=== PATIENT | male | born 1985 | race Two or more races ===

== ENCOUNTER 2024-03-08 11:27 | Emergency (ER) | payer MEDICAID, SELFPAY ==
[2024-03-08 11:32] VITALS: BMI 33.8
--- NOTE | 2024-03-08 11:56 | XR_ITS ---
Examination: AP chest single view Technique: AP portable upright chest single view Exam date and time: March 08, 2024 1209 hrs. Indications: Onset chest pain today Findings: Minimal prominence left ventricle No pneumonia or pulmonary edema The osseous structures are intact Impression: No active disease
--- NOTE | 2024-03-08 11:57 | PD.EDMEDCL ---
ED Medical Clearance RME/HPI General Chief complaint: Medical Clearance Stated complaint: CLEARANCE Time Seen by Provider: 03/08/24 11:34 Arrival date/time: 03/08/24 11:27 RME / HPI RME / HPI Narrative: 38-year-old male patient with significant history of cocaine abuse, was brought in by law enforcement for chest pain. Apparently patient is having chest pain since 9 AM today after using cocaine and drinking alcohol. He was picked up by law enforcement at around 10 PM. Currently patient is complaining of substernal chest pain, described as dull ache severity mild. Denies any cough denies any other complaints medications taken prior to arrival. Related Information Previous Rx's ?Medication ?Instructions ?Recorded cyclobenzaprine 5 mg tablet 5 mg PO TID PRN muscle spasm #30 11/16/23 tabs naproxen 500 mg tablet 500 mg PO BID PRN pain #30 tabs 11/16/23 Allergies Allergy/AdvReac Type Severity Reaction Status Date / Time bee venom protein (honey bee) Allergy Intermediate Swelling Verified 05/01/20 12:34 of the Eye Review of Systems Review of Systems Narrative Review of Systems: Review of system reviewed and within normal limits except mentioned in HPI ED Exam Narrative Physical exam: VITAL SIGNS: Reviewed. GENERAL APPEARANCE: Alert and interactive, follows commands, no acute distress, HEAD AND FACE: Non-traumatic. ENT: PERRL, pink conjunctivitis, eyelid no trauma, Mucous membrane moist. NECK: Supple, nontender, no nuchal rigidity. CHEST: No tenderness, no crepitus, no paradoxical movement, no retractions. LUNGS: Clear, well ventilated, symmetric, no rales, no wheezing, no ronchi, no stridor, good breath sounds bilaterally. HEART: Regular rate, regular rhythm, no murmur, no gallops. ABDOMEN: Soft, positive bowel sounds, nondistended, no guarding, nontender, no rebound, no masses, RECTAL: Deferred. GENITAL: Deferred. NEUROLOGICAL: Gross motor function intact sensory function intact, Appropriate for age. MUSCULOSKELETAL: low back nontender, full range of motion. EXTREMITIES: Nontender, full range of motion. SKIN: Color pink, dry, no rash, no lacerations, no abrasions, no contusions. LYMPHATICS: Deferred. Course Quality Measures none Orders Category Date Time Status XR chest 1V Stat Exams 03/08/24 11:56 Taken B-Type Natriuretic Peptide Stat Lab 03/08/24 12:03 Completed CBC Stat Lab 03/08/24 12:03 Completed Comprehensive Metabolic Panel Stat Lab 03/08/24 12:03 Completed Partial Thromboplastin Time Stat Lab 03/08/24 12:03 Completed Troponin I Stat Lab 03/08/24 12:03 Completed Vital Signs Vital signs: Vital Signs Temperature 98.7 F 03/08/24 12:04 Pulse Rate 133 H 03/08/24 12:04 Respiratory Rate 17 03/08/24 12:04 Blood Pressure 160/113 H 03/08/24 12:04 Pulse Oximetry (%) 97 03/08/24 12:04 Oxygen Delivery Method Room Air 03/08/24 12:04 Medical Clearance MDM Narrative MDM Narrative:: 38-year-old male patient with significant history of cocaine abuse, was brought in by law enforcement for chest pain. Apparently patient is having chest pain since 9 AM today after using cocaine and drinking alcohol. He was picked up by law enforcement at around 10 PM. Currently patient is complaining of substernal chest pain, described as dull ache severity mild. Denies any cough denies any other complaints medications taken prior to arrival. Cardiac workup came back unremarkable. Troponin is normal. Except for EKG shows sinus tachycardia, ventricular rate of 133 bpm, no ST segment ovation depression noted. Prior to discharge patient's heart rate was noted to be 120 and patient is denying any complaints. Patient is medically cleared for incarceration. Patient data External records reviewed:: None Clinical information provided by:: patient Social determinants that could affect healthcare access:: substance use Patient has the following chronic illnesses:: Cocaine abuse How is presenting disease/condition affected by chronic disease/condition?: exacerbated by Evaluation data The following diagnostics were reviewed and interpreted by me:: lab results, radiology exam(s) and EKG tracing(s) Lab and/or radiology exams considered but not ordered:: None Interpretation Summary: EKG sinus tachycardia, ventricular rate of 133 bpm, no ST segment elevation or depression noted. Laboratory workup all came back unremarkable troponin is normal. I personally reviewed and interpreted the x-ray of this patient. There is no acute abnormalities found, no infiltrates no pneumothorax no hemothorax normal chest x-ray. Review of other structures was without significant abnormal findings also. I additionally reviewed the radiologist report and agree with the interpretation. Medications / Prescriptions Medications or Prescriptions considered but not ordered:: None Medication administrations:: None Consultations Consultation(s) initiated? (list below): No Diagnosis Medical Clearance Differential Diagnosis: other (Cocaine abuse, chest pain, tachycardia, medical clearance for incarceration) Most likely diagnosis given after review of the tests above:: Medical clearance for incarceration, cocaine abuse Admission Indicated Admission indicated?: not indicated Explain why admission is indicated or not indicated:: None Admission Request Was there a request for admission?: No Disposition Plan Disposition Plan: Discharge Discharge Attestation Discharge Attestation: Patient condition: Stable Discharge Plan Plan Patient Disposition: Group Home/Court/Law Disposition Comment: Stable Prescriptions/Referrals Prescriptions/Med Rec: No Action naproxen 500 mg tablet 500 mg PO BID PRN (Reason: pain) Qty: 30 0RF cyclobenzaprine 5 mg tablet 5 mg PO TID PRN (Reason: muscle spasm) Qty: 30 0RF Problem List Clinical Impression: Medical clearance for incarceration, Cocaine abuse, Chest pain Patient/Caregiver Discharge Instructions Discharge Activity: activity as tolerated Education Materials: ED Drug Abuse Additional Instructions: Thank you for the opportunity for serving you today. You are stable for discharged . You are advised to: Follow-up with your PCP in 1 to 2 days once you get out of retirement Return to ED for worsening of symptoms Increase oral fluids Please stop abusing cocaine Print Language: Citizen Of [place] Stand Alone Forms: Henny Award Info., Patient Portal Info Letter PA/EZIO Supervising Physician MAGDALENA/EZIO Supervising Physician: MD Evonne
[2024-03-08 12:04] VITALS: BP 160/113; PULSE 133; RESP 17; TEMP 37.1; O2SAT 97
[2024-03-08 12:16] LABS: Basophils % (Auto) 0 % (0-2.5); Eosinophils % (Auto) 0 % (0-10); Hematocrit 37.4 % (41.0-53.0); Hemoglobin 13.1 g/dL (13.5-16.0); Immature Granulocytes % (Auto) 1 % (0-0); Immature Granulocytes Auto 0.06 Thou/mm3 (0.00-0.00); Lymphocytes # (Auto) 1.7 Thou/mm3 (1.0-4.8); Lymphocytes % (Auto) 14 % (10-50); Mean Corpuscular Hemoglobin 28.6 pg (25.0-35.0); Mean Corpuscular Volume 82 fL (80-100); Monocytes # (Auto) 0.8 Thou/mm3 (0.0-0.8); Monocytes % (Auto) 7 % (0-12); Neutrophils # (Auto) 9.2 Thou/mm3 (1.8-7.7); Neutrophils % (Auto) 78 % (37-80); Nucleated Red Blood Cell % 0 /100 WBC (0); Platelet Count 244 Thou/mm3 (140-440); RDW Standard Deviation 38.7 fL (35.1-43.9); Red Blood Count 4.58 Miln/mm3 (4.50-5.90); White Blood Count 11.8 Thou/mm3 (3.8-10.6)
[2024-03-08 12:34] LABS: B-Type Natriuretic Peptide < 20 pg/mL (0-100); Partial Thromboplastin Time 23.1 Seconds (22.0-36.0)
[2024-03-08 12:35] LABS: Alanine Aminotransferase 21 U/L (10-49); Albumin, Serum 4.8 gm/dL (3.5-5.0); Albumin/Globulin Ratio 1.6 (1.2-2.2); Alkaline Phosphatase 77 U/L (46-116); Anion Gap 10 (7-16); Aspartate Amino Transferase 17 U/L (0-34); BUN/Creatinine Ratio 13 Ratio (12-20); Bilirubin,Total 0.4 mg/dL (0.3-1.2); Blood Urea Nitrogen 15 mg/dL (9-23); Calcium 9.7 mg/dL (8.3-10.6); Calcium (Corrected) 9.7 mg/dL (8.5-10.1); Carbon Dioxide 21.7 mMol/L (20.0-31.0); Chloride 105 mMol/L (98-107); Creatinine (Component) 1.2 mg/dL (0.6-1.3); Estimated Creatinine Clearance 79.8 mL/min (>60); Glucose 99 mg/dL (74-106); Osmolality,Calculated 274 (275-295); Potassium 3.4 mMol/L (3.4-5.1); Sodium 137 mMol/L (136-145); Total Protein 7.8 gm/dL (5.7-8.2); Troponin I < 0.020 ng/mL (0.0-0.045); eGFR > 60 See Note
[2024-03-08 13:36] VITALS: BP 151/85; PULSE 107; RESP 18; TEMP 37; O2SAT 96
== END 2024-03-08 13:39 ==
LOC: SERX 13:55
PROVIDERS: Nurse Practitioner Family; Emergency Provider Emergency Medicine
DX: Z02.89 Encounter for other administrative examinations (principal); R07.9 Chest pain, unspecified; F14.10 Cocaine abuse, uncomplicated
CPT/HCPCS: 36415; 71045; 80053; 83880; 84484; 85025; 85730; 99283

== ENCOUNTER 2024-03-25 03:58 | Emergency (ER) | payer MEDICAID, SELFPAY ==
[2024-03-25] VITALS (17 sets, daily range): BP systolic 107–140; BP diastolic 67–86; PULSE 69–146; RESP 12–36; TEMP 36.3–39.7; O2SAT 94–100; BMI 36.0
[2024-03-25] MEDS: LORazepam 2 MG/ML VIAL IM (04:10)
[2024-03-25] MEDS: HALOPERIDOL LACT INJ 5 MG/ML VIAL IM (04:10)
[2024-03-25] MEDS: DiphenhydrAMINE INJ 50 MG/ML VIAL IM (04:10)
--- NOTE | 2024-03-25 04:13 | EDNOTE_ITS ---
ED General RME/HPI General Chief complaint: General Adult/Misc Complain Stated complaint: COMBATIVE Time Seen by Provider: 03/25/24 04:01 Source: patient Arrival date/time: 03/25/24 03:58 Mode of arrival: ambulatory Limitations: no limitations RME / HPI RME / HPI narrative: DR ERNANDEZ MAIN ED EVALUATION: 38-year-old male with history of alcohol abuse, cocaine abuse, methamphetamine abuse who presents to the emergency department for being combative. Related Data Previous Rx's ?Medication ?Instructions ?Recorded cyclobenzaprine 5 mg tablet 5 mg PO TID PRN muscle spasm #30 11/16/23 tabs naproxen 500 mg tablet 500 mg PO BID PRN pain #30 tabs 11/16/23 Allergies Allergy/AdvReac Type Severity Reaction Status Date / Time bee venom protein (honey bee) Allergy Intermediate Swelling Verified 05/01/20 12:34 of the Eye Review of Systems Review of Systems Systems Reviewed: All systems reviewed, normal except as documented Past Medical History Past Medical History CARDIAC: Negative Congestive Heart Failure RESPIRATORY: Negative Chronic Obstructive Pulmonary Disease (COPD) GENITOURINARY: Negative Renal Disease ENDOCRINE: Negative Diabetes Mellitus Type 1 or Diabetes Mellitus Type 2 PSYCHO/SOCIAL: Positive Recreational Drug Use (Meth use) Social History SMOKING STATUS: Never smoker SUBSTANCE USE: crack/cocaine ED Exam Narrative Physical exam: GENERAL APPEARANCE: alert and oriented x 4, well-developed, well-nourished, no acute distress VITALS: All vitals were reviewed and the pulse ox is 96% on room air, which is normal according to my interpretation. HEENT: Normocephalic, atraumatic; pupils equal, round, reactive to light; EOMI; mucous membranes pink, moist; oropharynx clear NECK: Supple LUNGS: CTABL; no wheezes, no rales, no rhonchi HEART: Tachycardic ABDOMEN: non distended; normal BS; soft, no tenderness, no guarding, no rebound; no masses, no organomegaly, no hernia BACK: no CVA tenderness EXTREMITIES: atraumatic; no edema NEUROLOGIC: awake; alert and oriented x4; cranial nerves II-XII grossly intact; no focal sensory or motor deficits PSYCHIATRIC: appropriate mood and affect SKIN: warm, dry, normal color; no rashes General Limitations: Present no limitations Course Course Course Narrative: 0516 Sepsis alert initiated. Orders made at this time are congruent with ED Adult Sepsis Order List. Re-evaluation is to be completed. 0546 Sepsis reassessment performed consisting of lab review, vitals, physical exam including auscultation of heart, lungs, and visual evaluation of capillary refills, mucosal membranes and extremities. The cardiac sonographer revealed sinus tachycardia as interpreted by me. The cardiac sonographer was ordered secondary to monitor for dysrhythmia. Rate 111 bpm. Quality Measures Current suspected stage: sepsis Possible source: unknown Blood cultures ordered: yes Antibiotic ordered: No Pertinent labs: 03/25/24 03/25/24 05:00 08:31 Lactic Acid 5.7 H* mMol/L 1.4 mMol/L (0.4-2.0) (0.4-2.0) Procalcitonin 0.04 ng/ml (0.0-0.49) sepsis Orders Category Date Time Status CT Screening NOW Care 03/25/24 07:23 Completed Railways Assistant NOW Care 03/25/24 04:23 Completed EKG (ED ONLY) *Do not use* NOW Care 03/25/24 04:23 Completed Bruce [Urinary Catheter] QS Care 03/25/24 07:32 Completed In and Out Catheter X1 Care 03/25/24 06:[address] abdomen pelvis w con Stat Exams 03/25/24 07:23 Completed EKG (ED Only) Stat Exams 03/25/24 04:23 Ordered XR chest 1V portable Stat Exams 03/25/24 04:23 Completed B-Type Natriuretic Peptide Stat Lab 03/25/24 05:00 Completed Blood Culture (Lab) Stat Lab 03/25/24 04:55 Received CBC Stat Lab 03/25/24 05:00 Completed Comprehensive Metabolic Panel Stat Lab 03/25/24 05:00 Completed Creatine Kinase Stat Lab 03/25/24 05:00 Completed Drug Screen,Urine Stat Lab 03/25/24 06:20 Completed Lactate (Lactic Acid) Stat Lab 03/25/24 05:00 Completed Lactic Acid, 3 HR Stat Lab 03/25/24 08:31 Completed Lipase Stat Lab 03/25/24 05:00 Completed Magnesium Stat Lab 03/25/24 05:00 Completed Partial Thromboplastin Time Stat Lab 03/25/24 05:00 Completed Procalcitonin Stat Lab 03/25/24 05:00 Completed Prothrombin Time with INR Stat Lab 03/25/24 05:00 Completed Troponin I Stat Lab 03/25/24 05:00 Completed UA, C/S IF [Urinalysis, C/S if Indicated] Stat Lab 03/25/24 06:20 Completed Urinalysis Stat Lab 03/25/24 06:20 Completed Urine Culture Stat Lab 03/25/24 06:20 Received Acetaminophen Ivpb [Ofirmev Inj] Med 03/25/24 04:27 Discontinued 1,000 mg in 100 ml IV X1 DiphenhydrAMINE INJ [Benadryl Inj] Med 03/25/24 04:01 Discontinued 50 mg IM X1 ONE Haloperidol Lactate [Haldol Inj] Med 03/25/24 04:01 Discontinued 5 mg IM X1 ONE LORazepam [Ativan Inj] Med 03/25/24 04:01 Discontinued 2 mg IM X1 ONE LORazepam [Ativan Inj] Med 03/25/24 04:22 Discontinued 2 mg IVP X1 ONE Sodium Chloride 0.9% 1000 ml [Ns] 1,000 ml Med 03/25/24 04:24 Discontinued IV 999 mls/hr Sodium Chloride 0.9% 1000 ml [Ns] 1,000 ml Med 03/25/24 04:27 Discontinued IV 999 mls/hr Sodium Chloride 0.9% 1000 ml [Ns] 1,000 ml Med 03/25/24 05:38 Discontinued IV 999 mls/hr cefTRIAXone/D5w 1gm IV premix [Rocephin/D5w 1gm IV Med 03/25/24 06:09 Discontinued premix] 50 ml IV X1 Vital Signs Vital signs: Vital Signs Temperature 103.4 F H 03/25/24 04:15 Pulse Rate 146 H 03/25/24 04:15 Respiratory Rate 36 H 03/25/24 04:15 Blood Pressure 130/67 03/25/24 04:15 Pulse Oximetry (%) 99 03/25/24 04:15 Oxygen Delivery Method Room Air 03/25/24 04:15 [facility] Patient data External records reviewed:: [facility] previous records Clinical information provided by:: patient Social determinants that could affect healthcare access:: other (specify) (mental health, alcohol use, cocaine and methamphetamine use) Patient has the following chronic illnesses:: Polysubstance abuse How is presenting disease/condition affected by chronic disease/condition?: e xacerbated by Evaluation data The following diagnostics were reviewed and interpreted by me:: lab results and radiology exam(s) Lab and/or radiology exams considered but not ordered:: n/a Interpretation Summary: 0520 Pending blood works collection Medications Medications considered but not ordered:: n/a Medication administrations:: Medication Administration History Discontinued Medications Diphenhydramine HCl (Diphenhydramine Inj 50 Mg/Ml Vial) 50 mg IM X1 ONE Stop: 03/25/24 04:02 Last Admin: 03/25/24 04:10 Dose: 50 mg Documented By: TC Haloperidol Lactate (Haloperidol Lact Inj 5 Mg/Ml Vial) 5 mg IM X1 ONE Stop: 03/25/24 04:02 Last Admin: 03/25/24 04:10 Dose: 5 mg Documented By: TC Sodium Chloride (Ns) 1,000 mls @ 999 mls/hr IV .Q1H1M ONE Stop: 03/25/24 05:24 Last Infusion: 03/25/24 05:32 Dose: Infused Documented By: Admin: 03/25/24 04:43 Dose: 999 mls/hr Documented By: TC Acetaminophen (Ofirmev Inj) 1,000 mg in 100 mls @ 250 mls/hr IV X1 ONE Stop: 03/25/24 04:50 Last Infusion: 03/25/24 04:58 Dose: Infused Documented By: Admin: 03/25/24 04:41 Dose: 250 mls/hr Documented By: TC Sodium Chloride (Ns) 1,000 mls @ 999 mls/hr IV .Q1H1M ONE Stop: 03/25/24 05:27 Last Infusion: 03/25/24 05:33 Dose: Infused Documented By: Admin: 03/25/24 04:40 Dose: 999 mls/hr Documented By: TC Sodium Chloride (Ns) 1,000 mls @ 999 mls/hr IV .Q1H1M ONE Stop: 03/25/24 06:38 Last Infusion: 03/25/24 06:41 Dose: Infused Documented By: Admin: 03/25/24 05:41 Dose: 999 mls/hr Documented By: TC Ceftriaxone Sodium/Dextrose (Rocephin/D5w 1gm Iv Premix) 50 mls @ 100 mls/hr IV X1 ONE Stop: 03/25/24 06:38 Last Infusion: 03/25/24 07:15 Dose: Infused Documented By: Admin: 03/25/24 06:45 Dose: 100 mls/hr Documented By: TC Lorazepam (Lorazepam 2 Mg/Ml Vial) 2 mg IM X1 ONE Stop: 03/25/24 04:02 Last Admin: 03/25/24 04:10 Dose: 2 mg Documented By: TC Lorazepam (Lorazepam 2 Mg/Ml Vial) 2 mg IVP X1 ONE Stop: 03/25/24 04:23 Last Admin: 03/25/24 04:39 Dose: 2 mg Documented By: TC as above Consultations Consultation(s) initiated? (list below): No Admission Indicated Admission indicated?: not indicated Explain why admission is indicated or not indicated:: sign out Admission Request Was there a request for admission?: No Disposition Plan Disposition Plan: other (specify) (sign out) Medical Decision Making MDM Narrative MDM Narrative: 0600: Care signed out to oncoming day shift provider Past medical, surgical, social and family history reviewed. Vitals and home medications reviewed. Results and treatment plan discussed. They will assume the care of the patient at this time and will follow the patient, pending work-up and final disposition. Scribe Attestation: I, Wayne Bianchi, am scribing for and in the presence of Dr. Ernandez. Provider Notation: Although this document has been carefully reviewed, there may still be some phonetic and other typographical errors. These errors are purely grammatical due to imperfections in the software program and should not be construed in any way to compromise the substance of the patient's medical care during this visit. Medical Records Medical records reviewed: Yes I reviewed the patient's medical records. Lab Data 03/25/24 05:00 03/25/24 05:00 Labs: Lab Results 03/25/24 03/25/24 03/25/24 Range/Units 05:00 06:20 08:31 WBC 13.5 H (3.8-10.6) Thou/mm3 RBC 4.20 L (4.50-5.90) Miln/mm3 Hgb 12.0 L (13.5-16.0) g/dL Hct 35.0 L (41.0-53.0) % MCV 83 (80-100) fL MCH 28.6 (25.0-35.0) pg MCHC 34.3 (31.0-37.0) g/dl RDW Std Deviation 38.5 (35.1-43.9) fL Plt Count 207 D (140-440) Thou/mm3 Neut % (Auto) 86 H (37-80) % Lymph % (Auto) 8 L (10-50) % Dawson % (Auto) 6 (0-12) % Eos % (Auto) 0 (0-10) % Baso % (Auto) 0 (0-2.5) % Neut # (Auto) 11.5 H (1.8-7.7) Thou/mm3 Lymph # (Auto) 1.0 (1.0-4.8) Thou/mm3 Dawson # (Auto) 0.8 (0.0-0.8) Thou/mm3 Eos # (Auto) 0.0 (0.0-0.5) Thou/mm3 Baso # (Auto) 0.0 (0.0-0.2) Thou/mm3 Immature Gran # (Auto) 0.10 H (0.00-0.00) Thou/mm3 Absolute Nucleated RBC 0.00 (0.00-0.00) Thou/mm3 Immature Gran % 1 H (0-0) % Nucleated RBC % 0 (0) /100 WBC PT 11.4 (9.0-12.2) Seconds INR 1.0 (0.9-1.3) APTT 20.0 L (22.0-36.0) Seconds Sodium 138 (136-145) mMol/L Potassium 3.2 L (3.4-5.1) mMol/L Chloride 108 H (98-107) mMol/L Carbon Dioxide 18.2 L (20.0-31.0) mMol/L Anion Gap 12 (7-16) BUN 15 (9-23) mg/dL Creatinine 1.4 H (0.6-1.3) mg/dL Estim Creat Clear Calc 84.0 (>60) mL/min eGFR > 60 (60 - ) See Note BUN/Creatinine Ratio 11 L (12-20) Ratio Glucose 147 H (74-106) mg/dL Calculated Osmolality 279 (275-295) Lactic Acid 5.7 H* 1.4 (0.4-2.0) mMol/L Calcium 8.7 (8.3-10.6) mg/dL Corrected Calcium 8.7 (8.5-10.1) mg/dL Magnesium 2.1 (1.6-2.6) mg/dL Total Bilirubin 0.3 (0.3-1.2) mg/dL AST 19 (0-34) U/L ALT 23 (10-49) U/L Alkaline Phosphatase 73 (46-116) U/L Total Creatine Kinase 373 H (34-171) U/L Troponin I < 0.020 (0.0-0.045) ng/mL B-Natriuretic Peptide < 20 (0-100) pg/mL Total Protein 6.9 (5.7-8.2) gm/dL Albumin 4.4 (3.5-5.0) gm/dL Globulin 2.5 (2.3-3.5) gm/dL Albumin/Globulin Ratio 1.8 (1.2-2.2) Lipase 34 (12-53) U/L Procalcitonin 0.04 (0.0-0.49) ng/ml Ur Collection Type Catheter Urine Color Colorless A (Lt Yel-Yel) Urine Clarity Clear (Clear/Hazy) Urine pH 6.0 (5.0-7.0) Ur Specific [place] 1.008 (1.001-1.035) Urine Protein Trace (Neg - Trace) Urine Glucose (UA) Negative (Negative) Urine Ketones Negative (Negative) Urine Blood Negative (Negative) Urine Nitrite Negative (Negative) Urine Bilirubin Negative (Negative) Urine Urobilinogen (Auto) Negative (0.0-1.0) mg/dL Ur Leukocyte Esterase Negative (Negative) Urine RBC 0 (0-3) /hpf Urine WBC 0 (0-5) /hpf Ur Squamous Epith Cells 0 (0-5) /hpf Urine Bacteria None (None) Ur Culture Indicated? Not Indicated Urine Opiates Screen Negative (Negative) Urine Fentanyl Screen Negative (Negative) Ur Barbiturates Screen Negative (Negative) U Amphetamin/Meth Scrn Negative (Negative) U Benzodiazepines Scrn Negative (Negative) U Cocaine Metab Screen Positive A (Negative) U Marijuana (THC) Screen Negative (Negative) Discharge Plan Plan Patient Disposition: HOME (Self Care) Disposition Comment: Stable for DC home Prescriptions/Referrals Prescriptions/Med Rec: No Action naproxen 500 mg tablet 500 mg PO BID PRN (Reason: pain) Qty: 30 0RF cyclobenzaprine 5 mg tablet 5 mg PO TID PRN (Reason: muscle spasm) Qty: 30 0RF Referrals: No Primary/Family,Physician [Primary Care Provider] - In 1 week Problem List Clinical Impression: Cocaine abuse Patient/Caregiver Discharge Instructions Education Materials: ED Cocaine And Crack Abuse Additional Instructions: Stop using cocaine. That stuff is very dangerous and can kill you. Follow-up with your medical doctor in 24 to 72 hours for recheck and further care. Return to the nearest ER if condition worsens or if new symptoms develop. Print Language: [place] Stand Alone Forms: Henny Award Info., Patient Portal Info Letter
--- NOTE | 2024-03-25 04:23 | XR_ITS ---
Examination: AP chest single view Technique: AP portable semiupright chest single view Exam date and time: March 25, 2024 1739 hrs. Comparison March 08, 2024 Indications: Chest pain today. Findings: Normal heart size Lungs are clear. The osseous structures are intact Reduced inspiration Impression: Poor inspiratory effort chest
[2024-03-25] MEDS: LORazepam 2 MG/ML VIAL IVP (04:39)
[2024-03-25] MEDS: SODIUM CHLORIDE 0.9% 1000 ML 1,000 ML 999 ML IV ×3 (04:40→05:41)
[2024-03-25] MEDS: ACETAMINOPHEN IVPB 1,000 MG/100 ML VIAL 250 MG IV (04:41)
[2024-03-25 05:32] LABS: Basophils % (Auto) 0 % (0-2.5); Eosinophils % (Auto) 0 % (0-10); Immature Granulocytes % (Auto) 1 % (0-0); Lymphocytes % (Auto) 8 % (10-50); Mean Corpuscular HGB Conc 34.3 g/dl (31.0-37.0); Mean Corpuscular Hemoglobin 28.6 pg (25.0-35.0); Mean Corpuscular Volume 83 fL (80-100); Monocytes # (Auto) 0.8 Thou/mm3 (0.0-0.8); Monocytes % (Auto) 6 % (0-12); Neutrophils # (Auto) 11.5 Thou/mm3 (1.8-7.7); Neutrophils % (Auto) 86 % (37-80); Nucleated Red Blood Cell % 0 /100 WBC (0); Platelet Count 207 Thou/mm3 (140-440); RDW Standard Deviation 38.5 fL (35.1-43.9); White Blood Count 13.5 Thou/mm3 (3.8-10.6)
[2024-03-25 05:38] LABS: Lactate (Lactic Acid) 5.7 mMol/L (0.4-2.0)
[2024-03-25 05:52] LABS: B-Type Natriuretic Peptide < 20 pg/mL (0-100)
[2024-03-25 06:00] LABS: Alanine Aminotransferase 23 U/L (10-49); Albumin, Serum 4.4 gm/dL (3.5-5.0); Albumin/Globulin Ratio 1.8 (1.2-2.2); Alkaline Phosphatase 73 U/L (46-116); Anion Gap 12 (7-16); Aspartate Amino Transferase 19 U/L (0-34); BUN/Creatinine Ratio 11 Ratio (12-20); Bilirubin,Total 0.3 mg/dL (0.3-1.2); Blood Urea Nitrogen 15 mg/dL (9-23); Calcium 8.7 mg/dL (8.3-10.6); Calcium (Corrected) 8.7 mg/dL (8.5-10.1); Carbon Dioxide 18.2 mMol/L (20.0-31.0); Chloride 108 mMol/L (98-107); Creatine Kinase 373 U/L (34-171); Creatinine (Component) 1.4 mg/dL (0.6-1.3); Globulin 2.5 gm/dL (2.3-3.5); Glucose 147 mg/dL (74-106); Lipase 34 U/L (12-53); Magnesium 2.1 mg/dL (1.6-2.6); Osmolality,Calculated 279 (275-295); Potassium 3.2 mMol/L (3.4-5.1); Procalcitonin 0.04 ng/ml (0.0-0.49); Sodium 138 mMol/L (136-145); Total Protein 6.9 gm/dL (5.7-8.2); Troponin I < 0.020 ng/mL (0.0-0.045); eGFR > 60 See Note
[2024-03-25 06:24] LABS: Collection Type, Urine Catheter; RBC,Urine 0 /hpf (0-3); Squamous Epithelial Cell,Urine 0 /hpf (0-5); WBC,Urine 0 /hpf (0-5)
[2024-03-25] MEDS: cefTRIAXone/D5w 1gm IV premix 50 ML IV (06:45)
[2024-03-25 06:56] LABS: Bilirubin,Urine Negative (Negative); Blood,Urine Negative (Negative); Clarity,Urine Clear (Clear/Hazy); Color,Urine Colorless (Lt Yel-Yel); Culture Indicated,Urine Not Indicated; Glucose, Urine Negative (Negative); Ketones,Urine Negative (Negative); Leukocyte Esterase,Urine Negative (Negative); Nitrite,Urine Negative (Negative); Protein,Urine Trace (Neg - Trace); Specific Gravity,Urine 1.008 (1.001-1.035); Urobilinogen,Urine Negative mg/dL (0.0-1.0)
[2024-03-25 06:57] LABS: Prothrombin Time 11.4 Seconds (9.0-12.2)
--- NOTE | 2024-03-25 07:23 | XR_ITS ---
Examination: CT abdomen with intravenous contrast CT pelvis with intravenous contrast 2-D coronal reconstructions 2-D sagittal reconstructions Date and time of exam:March 25, 2024 1229 hours INDICATIONS: Distended abdomen with fever today. CTDI: vol (mGy) 8.35 DLP: (mGycm) 550 Technique: Multiple axial sections of the abdomen and pelvis have been obtained. 64 slice high-resolution scanner used. 3 mm axial sections have been obtained, post intravenous injection 60 cc [id number] 2-D sagittal, coronal reconstructions obtained. Low dose protocols were performed. One or more of the following dose reduction techniques were used; automated exposure control, adjustment of the mA and/or KV according to patient size, use of iterative reconstruction technique. Findings: No focal liver or splenic lesions No gallstones No pancreatic or adrenal mass No renal or ureteral calculi, no hydronephrosis Aorta normal size Normal appendix No abdominal or pelvic abscess Colonic diverticulosis Urinary bladder contracted around a Bruce catheter Small fat-containing left inguinal hernia IMPRESSION: No renal or ureteral calculi, no hydronephrosis No opaque foreign bodies noted in the gastrointestinal tract Normal appendix Negative for ascites
[2024-03-25 07:52] LABS: Amphetamine/Methamp Scrn,U Negative (Negative); Barbiturate Screen,Urine Negative (Negative); Benzodiazepines Screen,Urine Negative (Negative); Benzoylecgonine Screen, Ur Positive (Negative); Fentanyl Screen,Urine Negative (Negative); Opiate Screen,Urine Negative (Negative); THC Screen,Urine Negative (Negative)
--- NOTE | 2024-03-25 08:16 | PC.NURSE ---
Pt resting w/eyes closed, denies any pain or discomfort at this time. Bruce placed output documented. Call jin in reach, VSS on tele
--- NOTE | 2024-03-25 08:21 | EDNOTE_ITS ---
Emergency Room Addendum <Bernadette Tran - Last Filed: 03/25/24 15:06> Addendum Narrative: 0600: Care assumed from Dr. Avery, the previous shift emergency physician. Past medical, surgical, social and family history reviewed. Vitals and home medications reviewed. I will assume the care of the patient at this time, pending reassessment and final disposition. Please refer to the emergency department record for history and examination from initial visit.? Nursing notes reviewed by me. Vital signs reviewed by me. [facility] records reviewed by me. A sepsis alert was called prior to my shift at 05:16 am. Patient was given 3L of NS. By my predecessor Dr. AVERY. I put the patient on some antibiotic because of possibility of pneumonia. CBC white count of 14,000. Bicarb of 18. Creatinine is 1.6. Lipase negative. CMP is otherwise unremarkable. Lactic acid at 5.7 after the IV fluid it came down to 1.4. CK mildly elevated but no sign of rhabdo. Troponin is negative. BNP is negative. Procalcitonin negative. U tox is positive for cocaine not methamphetamine. UA is negative. One-view portable chest x-ray interpreted by me: Cannot rule out infiltrate behind the heart shadow. Mediastinum is normal. Normal bones. No pneumothorax. No CHF. Twelve-lead EKG that was done at 4:53 AM and interpreted by me: Sinus rhythm. Heart rate 121. Normal axis. No ST elevation. No ST depression. No PVC. No STEMI. Regular rate and rhythm. CT abdomen and pelvic reviewed by and interpreted by me: No stranding. No obstruction. No air-fluid level. No free air. And no sign of foreign body in the intestinal tract or stomach. Except for food. 3 PM, the patient is alert awake oriented x 4 GCS of 15. Vital signs are stable. Temperature 98.5 by me. Repeat abdominal exam is completely benign. He does not cough. Therefore possibility of pneumonia is unlikely. Besides Dr Dillard, radiologist read the chest x-ray being negative acute. After multiple questioning, the patient insist that he just swallows some drugs by mouth. He did not swallow any bags of drugs. I specifically classify as a plastic bag he said no. Diagnosis: Cocaine abuse Condition: Stable and improved DC instruction: Stop using cocaine. It is extremely dangerous and can kill you. Follow-up with your medical doctor in 72 hours for recheck and further care. Return to emergency department if any problem. RADIOLOGY Ordering Physician: Talon Rojas MD Date of Service: 03/25/24 Procedure(s): CT abdomen pelvis w con Accession Number(s): [id number] cc: Breezy Dillard MD; NO PRIMARY/FAMILY,PHYSICIAN; Talon oRjas MD~ Examination: CT abdomen with intravenous contrast CT pelvis with intravenous contrast 2-D coronal reconstructions 2-D sagittal reconstructions Date and time of exam:March 25, 2024 1229 hours INDICATIONS: Distended abdomen with fever today. CTDI: vol (mGy) 8.35 DLP: (mGycm) 550 Technique: Multiple axial sections of the abdomen and pelvis have been obtained. 64 slice high-resolution scanner used. 3 mm axial sections have been obtained, post intravenous injection 60 cc [id number] 2-D sagittal, coronal reconstructions obtained. Low dose protocols were performed. One or more of the following dose reduction techniques were used; automated exposure control, adjustment of the mA and/or KV according to patient size, use of iterative reconstruction technique. Findings: No focal liver or splenic lesions No gallstones No pancreatic or adrenal mass No renal or ureteral calculi, no hydronephrosis Aorta normal size Normal appendix No abdominal or pelvic abscess Colonic diverticulosis Urinary bladder contracted around a Bruce catheter Small fat-containing left inguinal hernia IMPRESSION: No renal or ureteral calculi, no hydronephrosis No opaque foreign bodies noted in the gastrointestinal tract Normal appendix Negative for ascites Dictated By: Breezy Dillard MD Signed By: <Electronically signed by Breezy Dillard MD in OV> 03/25/24 1335 Ordering Physician: Celeste Avery MD Date of Service: 03/25/24 Procedure(s): XR chest 1V portable Accession Number(s): [id number] cc: Breezy Dillard MD; NO PRIMARY/FAMILY,PHYSICIAN; Celeste Avery MD~ Examination: AP chest single view Technique: AP portable semiupright chest single view Exam date and time: March 25, 2024 1739 hrs. Comparison March 08, 2024 Indications: Chest pain today. Findings: Normal heart size Lungs are clear. The osseous structures are intact Reduced inspiration Impression: Poor inspiratory effort chest Dictated By: Breezy Dillard MD Signed By: <Electronically signed by Breezy Dillard MD in OV> 03/25/24 0734 <Talon Rojas MD - Last Filed: 03/25/24 15:08> Addendum Narrative: 0600: Care assumed from Dr. Avery, the previous shift emergency physician. Past medical, surgical, social and family history reviewed. Vitals and home medications reviewed. I will assume the care of the patient at this time, pending reassessment and final disposition. Please refer to the emergency department record for history and examination from initial visit.? Nursing notes reviewed by me. Vital signs reviewed by me. [facility] records reviewed by me. A sepsis alert was called prior to my shift at 05:16 am. Patient was given 3L of NS. By my predecessor Dr. AVERY. I put the patient on some antibiotic because of possibility of pneumonia. My predecessor Dr. AVERY does not think the patient needs to be admitted. She think that the patient needs time to metabolize the drugs that he had swallowed. She does not think that the patient has sepsis. CBC white count of 14,000. Bicarb of 18. Creatinine is 1.6. Lipase negative. CMP is otherwise unremarkable. Lactic acid at 5.7 after the IV fluid it came down to 1.4. CK mildly elevated but no sign of rhabdo. Troponin is negative. BNP is negative. Procalcitonin negative. U tox is positive for cocaine not methamphetamine. UA is negative. One-view portable chest x-ray interpreted by me: Cannot rule out infiltrate behind the heart shadow. Mediastinum is normal. Normal bones. No pneumothorax. No CHF. Twelve-lead EKG that was done at 4:53 AM and interpreted by me: Sinus rhythm. Heart rate 121. Normal axis. No ST elevation. No ST depression. No PVC. No STEMI. Regular rate and rhythm. CT abdomen and pelvic reviewed by and interpreted by me: No stranding. No obstruction. No air-fluid level. No free air. And no sign of foreign body in the intestinal tract or stomach. Except for food. 3 PM, the patient is alert awake oriented x 4 GCS of 15. Vital signs are stable. Temperature 98.5 by me. Repeat abdominal exam is completely benign. He does not cough. Therefore possibility of pneumonia is unlikely. Besides Dr Dillard, radiologist read the chest x-ray being negative acute. After multiple questioning, the patient insist that he just swallows some drugs by mouth. He did not swallow any bags of drugs. I specifically classify as a plastic bag he said no. Diagnosis: Cocaine abuse Condition: Stable and improved DC instruction: Stop using cocaine. It is extremely dangerous and can kill you. Follow-up with your medical doctor in 72 hours for recheck and further care. Return to emergency department if any problem. RADIOLOGY Ordering Physician: Talon Rojas MD Date of Service: 03/25/24 Procedure(s): CT abdomen pelvis w con Accession Number(s): [id number] cc: Breezy Dillard MD; NO PRIMARY/FAMILY,PHYSICIAN; Talon Rojas MD~ Examination: CT abdomen with intravenous contrast CT pelvis with intravenous contrast 2-D coronal reconstructions 2-D sagittal reconstructions Date and time of exam:March 25, 2024 1229 hours INDICATIONS: Distended abdomen with fever today. CTDI: vol (mGy) 8.35 DLP: (mGycm) 550 Technique: Multiple axial sections of the abdomen and pelvis have been obtained. 64 slice high-resolution scanner used. 3 mm axial sections have been obtained, post intravenous injection 60 cc [id number] 2-D sagittal, coronal reconstructions obtained. Low dose protocols were performed. One or more of the following dose reduction techniques were used; automated exposure control, adjustment of the mA and/or KV according to patient size, use of iterative reconstruction technique. Findings: No focal liver or splenic lesions No gallstones No pancreatic or adrenal mass No renal or ureteral calculi, no hydronephrosis Aorta normal size Normal appendix No abdominal or pelvic abscess Colonic diverticulosis Urinary bladder contracted around a Bruce catheter Small fat-containing left inguinal hernia IMPRESSION: No renal or ureteral calculi, no hydronephrosis No opaque foreign bodies noted in the gastrointestinal tract Normal appendix Negative for ascites Dictated By: Breezy Dillard MD Signed By: <Electronically signed by Breezy Dillard MD in OV> 03/25/24 1335 Ordering Physician: Celeste Avery MD Date of Service: 03/25/24 Procedure(s): XR chest 1V portable Accession Number(s): [id number] cc: Breezy Dillard MD; NO PRIMARY/FAMILY,PHYSICIAN; Celeste Avery MD~ Examination: AP chest single view Technique: AP portable semiupright chest single view Exam date and time: March 25, 2024 1739 hrs. Comparison March 08, 2024 Indications: Chest pain today. Findings: Normal heart size Lungs are clear. The osseous structures are intact Reduced inspiration Impression: Poor inspiratory effort chest Dictated By: Breezy Dillard MD Signed By: <Electronically signed by Breezy Dillard MD in OV> 03/25/24 0734
[2024-03-25 08:22] LABS: Reflex Lactate? Y
[2024-03-25 08:38] LABS: Lactic Acid, 3 HR 1.4 mMol/L (0.4-2.0)
== END 2024-03-25 15:43 | disposition home or self-care (01) ==
PROVIDERS: Emergency Medicine; Emergency Provider Emergency Medicine
DX: F14.10 Cocaine abuse, uncomplicated (principal); R14.0 Abdominal distension (gaseous); R50.9 Fever, unspecified; R07.9 Chest pain, unspecified; R00.0 Tachycardia, unspecified
CPT/HCPCS: 51702; 36415; 36600; 71045; 74177; 80053; 80307; 81001; 82550; 82803; 83605; 83690; 83735; 83880; 84145; 84484; 85025; 85610; 85730; 87040; 87086; 93005; 96361; 96365; 96367; 96372; 96375; 99285; A4649; J0131; J0696; J1200; J1630; J2060; J7030; Q9967

== ENCOUNTER 2024-10-16 23:18 | Emergency (ER) | payer MEDICAID, SELFPAY ==
[2024-10-16 23:23] VITALS: BMI 31.0
--- NOTE | 2024-10-16 23:23 | EDNOTE_ITS ---
Altered Mental Status RME/HPI General Chief Complaint: Medical Clearance Stated Complaint: MEDICAL CLEARANCE Time Seen by Provider: 10/16/24 23:20 Arrival date/time: 10/16/24 23:18 RME / HPI RME / HPI narrative: DR. RAMIREZ MAIN ED EVALUATION: 39 y/o male with Hx of recreational drug abuse BIBA and PPD due to being found by EMS with AMS, hallucinations, and paranoia. Patient was combative on scene requiring physical and chemical restraints, then was transferred to ED for evaluation. No sign of head trauma or seizure. History was abbreviated, primarily obtained from EMS. No other concerns or complaints expressed at this time. Related Data Previous Rx's ?Medication ?Instructions ?Recorded cyclobenzaprine 5 mg tablet 5 mg PO TID PRN muscle spa sm #30 11/16/23 tabs naproxen 500 mg tablet 500 mg PO BID PRN pain #30 t abs 11/16/23 Allergies Allergy/AdvReac Type Severity Reaction Status Date / Time bee venom protein (honey bee) Allergy Intermediate Swelling Verified 05/01/20 12:34 of the Eye Review of Systems Review of Systems Systems Reviewed: All systems reviewed, normal except as documented Past Medical History Past Medical History PSYCHO/SOCIAL: Positive Recreational Drug Use Social History SUBSTANCE USE: crack/cocaine, opiates and methamphetamine SUBSTANCE LAST USED: just [employer] ED Exam Narrative Physical exam: GEN. APPEARANCE: The patient is disoriented, does not look ill/toxic. Patient has good eye contact. Patient appears agitated. VITALS: All vitals were reviewed and the pulse ox is 97% on room air which is normal according to my interpretation. HEENT: Normocephalic, atraumatic. Pupils are equal and reactive. Oral mucosa is moist. Patent Nares NECK: Supple, nontender, no thyromegaly, no meningismus, no JVD, no step offs CHEST: Symmetrical, atraumatic, and with equal expansion , Nontender on palpation no deformity and no crepitus. CARDIOVASCULAR: Hypertensive and tachycardic, no murmur or gallop rub or extra beats. LUNGS: Clear to auscultation bilaterally with symmetrical chest rise. No laboring tachypnea or wheezing. No intercostal subcostal retraction. No rales and no rhonchi. ABDOMEN: Soft, flat, nontender to palpation, no guarding or rebound tenderness. There are no abnormal masses palpated. Active and normal bowel sounds. EXTREMITIES: Nontender. No edema. No cyanosis. Patient is able to move all 4 extremities well, with full ROM and good CSM. SKIN: Warm and diaphoretic, no jaundice or rashes noted. MUSCULOSKELETAL: No lubar or midline bony tenderness. There is no CVA tenderness. No paraspinal muscle spasm or tenderness. NEURO: Moderate to severe phsyomotor agitation. Cranial nerves II through XII grossly intact. There is no focal neurologic deficits noted. GCS is 15, PNS and PARTS IDENTIFICATION TECHNICIAN appear grossly intact. Disoriented agitated no focal deficits. PSYCHIATRIC: Patient is disoriented and agitated, cooperative, no SI or HI or hallucinations. Physically unable to fully assess at this time. Course Quality Measures none Orders Category Date Time Status Bedside Blood Glucose NOW Care 10/16/24 23:25 Completed Mold Release Worker NOW Care 10/16/24 23:25 Completed Continuous Pulse Oximetry NOW Care 10/16/24 23:25 Completed EKG (ED ONLY) *Do not use* NOW Care 10/16/24 23:25 Completed Insert IV NOW Care 10/16/24 23:25 Completed NPO NOW Care 10/16/24 23:[address] cervical spine wo con Stat Exams 10/16/24 23:25 Taken EKG (ED Only) Stat Exams 10/16/24 23:25 Ordered Acetaminophen Stat Lab 10/16/24 23:25 Completed Alcohol, Blood Medical Stat Lab 10/16/24 23:25 Completed BMP [Basic Metabolic Panel] Stat Lab 10/17/24 02:58 Completed CBC Stat Lab 10/16/24 23:25 Completed CBC Stat Lab 10/17/24 02:58 Completed Comprehensive Metabolic Panel Stat Lab 10/16/24 23:25 Completed Creatine Kinase Stat Lab 10/17/24 02:58 Completed Drug Screen,Urine Stat Lab 10/17/24 01:19 Completed Magnesium Stat Lab 10/16/24 23:25 Completed Path Review Blood Smear Stat Lab 10/17/24 02:58 Completed Salicylate Stat Lab 10/16/24 23:25 Completed Urinalysis Stat Lab 10/17/24 01:19 Completed Diazepam Inj [Valium Inj] Med 10/16/24 23:30 Discontinued 10 mg .ROUTE .STK-MED ONE Diazepam Inj [Valium Inj] Med 10/16/24 23:22 Discontinued 10 mg IM X1 ONE Haloperidol Lactate [Haldol Inj] Med 10/16/24 23:30 Discontinued 10 mg .ROUTE .STK-MED ONE Haloperidol Lactate [Haldol Inj] Med 10/16/24 23:22 Discontinued 10 mg IM X1 ONE Sodium Chloride 0.9% 1000 ml [Ns] 1,000 ml Med 10/16/24 23:25 Discontinued IV 1,000 mls/hr Sodium Chloride 0.9% 1000 ml [Ns] 1,000 ml Med 10/17/24 00:46 Discontinued IV 999 mls/hr Sodium Chloride 0.9% 1000 ml [Ns] 1,000 ml Med 10/17/24 02:40 Discontinued IV 999 mls/hr Vital Signs Vital signs: Vital Signs Temperature 97.7 F 10/16/24 23: Pulse Rate 168 H 10/16/24 23:25 Respiratory Rate 22 H 10/16/24 23:25 Blood Pressure 174/81 H 10/16/24 23:25 Pulse Oximetry (%) 100 10/16/24 23:25 Oxygen Delivery Method Room Air 10/16/24 23:25 Notably severely tachycardic with rate of 168 hypertensive at systolic of 174 and 100% O2 saturation on room air. Altered Mental Status MDM Narrative MDM Narrative:: Scribe Attestation: ILynda, am scribing for and in the presence of Dr. Ramirez. Provider Notation: Although this document has been carefully reviewed, there may still be some phonetic and other typographical errors.? These errors are purely grammatical due to imperfections in the software program and should not be construed in any way to? compromise the substance of the patient's medical care during this visit. 39 y/o male with Hx of recreational drug abuse BIBA and PPD due to being found by EMS with AMS, hallucinations, and paranoia. Patient was combative on scene requiring physical and chemical restraints, then was transferred to ED for evaluation. No sign of head trauma or seizure. Please see PE findings. Patient acuely psychoti with markedly increased BP and HR. Underwent rapid tranquilization wth resolution of psychomotor hyperactivity. patient aggressively hydrated with normal saline to correct volume deficit. Laboratory markers were pertinent for markedly elevated WBC of 25k likely due to demarhination. Hemoglobin concentrated at 13 notable for Creatinine 2.2 and CO2 of 15.1. UA demonstrates proteinuria. Toxicology screen positive for cocaine and benzodiazepines. Continued hydration and F/U serum chemistries pending. Patient lucid and released on his own accord by [facility]. Patient will likely be discharged home. Patient counseled regarding illicit drug abuse and need to F/U with PMD to repeat serum chemistries. F/U serum chemistry markedly improved however total CK of 13K putting patient at serious risk or rhabdomyolosis and kidney failure. Despite risks of developing kidney failure, patient opted to leave [facility] due to new employment. Informed he may return and to f/u with primary care for repeat serums in 3-5 days. Final diagnoses include: drug-induced psychosis, substance abuse, and acute renal i nsufficiency. Patient data External records reviewed:: [facility] previous records (Reviewed prior ED records from 03/25/24. Patient was seen for Cocaine abuse.) and EMS form Clinical information provided by:: EMS Social determinants that could affect healthcare access:: substance use (Methamphetamine) Patient has the following chronic illnesses:: Recreational drug use How is presenting disease/condition affected by chronic disease/condition?: exacerbated by Evaluation data The following diagnostics were reviewed and interpreted by me:: lab results, radiology exam(s) and EKG tracing(s) (EKG shows sinus tachycardia at 138 bpm, no acute ST segment elevations, no ventricular ectopy, normal axis, nonspecific ST changes, per my interpretation.) Lab and/or radiology exams considered but not ordered:: None Interpretation Summary: RADIOLOGY Cervical Spine CT: Pending official radiology report. Medications / Prescriptions Medications or Prescriptions considered but not ordered:: None Medication administrations:: Medication Administration History Discontinued Medications Diazepam (Diazepam Inj 5 Mg/Ml Vial 2 Ml) 10 mg IM X1 ONE Stop: 10/16/24 23:23 Last Admin: 10/16/24 23:39 Dose: 10 mg Documented By: JOHNIE Diazepam (Diazepam Inj 5 Mg/Ml Vial 2 Ml) Confirm Administered Dose 10 mg .ROUTE .STK-MED ONE Stop: 10/16/24 23:31 Last Admin: 10/16/24 23:42 Dose: Not Given Documented By: JOHNIE Non-Admin Reason: Override Medication Haloperidol Lactate (Haloperidol Lact Inj 5 Mg/Ml Vial) 10 mg IM X1 ONE Stop: 10/16/24 23:23 Last Admin: 10/16/24 23:42 Dose: 10 mg Documented By: JOHNIE Haloperidol Lactate (Haloperidol Lact Inj 5 Mg/Ml Vial) Confirm Administered Dose 10 mg .ROUTE .STK-MED ONE Stop: 10/16/24 23:31 Last Admin: 10/16/24 23:42 Dose: Not Given Documented By: JOHNIE Non-Admin Reason: Override Medication Sodium Chloride (Ns) 1,000 mls @ 1,000 mls/hr IV .Q1H ONE Stop: 10/17/24 00:24 Last Infusion: 10/17/24 01:30 Dose: Infused Documented By: Admin: 10/17/24 00:19 Dose: 1,000 mls/hr Documented By: KLAUS Sodium Chloride (Ns) 1,000 mls @ 999 mls/hr IV .Q1H1M ONE Stop: 10/17/24 01:46 Last Infusion: 10/17/24 02:24 Dose: Infused Documented By: Admin: 10/17/24 00:54 Dose: 999 mls/hr Documented By: DT Sodium Chloride (Ns) 1,000 mls @ 999 mls/hr IV .Q1H1M ONE Stop: 10/17/24 03:40 Last Admin: 10/17/24 03:36 Dose: Not Given Documented By: DT Non-Admin Reason: Cancelled by Provider See above Consultations Consultation(s) initiated? (list below): No Diagnosis Differential diagnosis altered mental status: alcoholic intoxication, altered mental status, delirium, hypoglycemia, hyponatremia, sepsis and other (Dehydration, Metabolic abnormalty) Most likely diagnosis given after review of the tests above:: drug-induced psychosis, substance abuse, and acute renal insufficiency. Admission Indicated Admission indicated?: not indicated Explain why admission is indicated or not indicated:: Patient left AMA. Admission Request Was there a request for admission?: No Disposition Plan Disposition Plan: other (specify) (Patient left AMA.) Critical Care Time Critical Care Time Critical Care Time: Yes Total Critical Care Time (min.): 45 Attestation: The high probability of sudden, clinically significant deterioration in the patient?s condition required the highest level of my preparedness to intervene urgently. ? The services I provided to this patient were to treat and/or prevent clinically significant deterioration. Services included the following: chart data review, reviewing nursing notes and/or old charts, documentation time, product support consultant collaboration regarding findings and treatment options, medication orders and management, direct patient care, vital sign assessments and ordering, interpreting and reviewing diagnostic studies and lab tests. ? Aggregate critical care time includes only time during which I was engaged in work directly related to the patient?s care, as described above, whether at bedside or elsewhere in the Emergency Department. It did not include time spent performing other reported procedures or the services of residents, students, nurses or physician assistants. Discharge Plan Plan Patient Disposition: Left Against Medical Advice Patient condition on transfer: Stable Prescriptions/Referrals Prescriptions/Med Rec: No Action naproxen 500 mg tablet 500 mg PO BID PRN (Reason: pain) Qty: 30 0RF cyclobenzaprine 5 mg tablet 5 mg PO TID PRN (Reason: muscle spasm) Qty: 30 0RF Referrals: No Primary/Family,Physician [Primary Care Provider] - In 1 week Problem List Clinical Impression: Cocaine abuse, Hallucinations, Acute on chronic renal insufficiency Patient/Caregiver Discharge Instructions Other Activity Instructions:: Patient instructed to follow-up with his primary care doctor for repeat serum chemistries in 3 to 5 days and to return if worsening Additional Instructions: You may return to the emergency department if worsening. Follow-up with primary care doctor repeat serum chemistries and force fluids. Print Language: Setswana
[2024-10-16 23:25] VITALS: BP 174/81; PULSE 168; RESP 22; TEMP 36.5; O2SAT 100
--- NOTE | 2024-10-16 23:25 | XR_ITS ---
Examination: CT cervical spine without contrast 2-D sagittal reconstructions 2-D coronal reconstructions 3-D reconstructions. Exam date and time:October 17, 2024, 0132 hours INDICATIONS: Injury to the neck today, medical clearance CTDI:vol (mGy) 18.8 DLP: (mGycm) 461 Technique: Multiple 2 mm axial sections of the cervical spine have been obtained. The coronal and sagittal reconstructions have been obtained. 3-D reconstructions have been obtained. Low dose protocols were performed. One or more of the following dose reduction techniques were used; automated exposure control, adjustment of the mA and/or KV according to patient size, use of iterative reconstruction technique. Findings: Axial sections demonstrate intact base of the skull. C1 exhibit satisfactory relationship to the odontoid. No acute cervical vertebral body fracture seen. Alignment posterior spinous processes satisfactory. Impression: No acute cervical fracture.
[2024-10-16] MEDS: DIAZEPAM INJ 5 MG/ML VIAL 2 ML 10 MG IM (23:39)
[2024-10-16] MEDS: HALOPERIDOL LACT INJ 5 MG/ML VIAL 10 MG IM (23:42)
[2024-10-17] MEDS: SODIUM CHLORIDE 0.9% 1000 ML 1,000 ML IV (00:19)
[2024-10-17 00:20] LABS: Basophils # (Auto) 0.1 Thou/mm3 (0.0-0.2); Basophils % (Auto) 0 % (0-2.5); Eosinophils # (Auto) 0.0 Thou/mm3 (0.0-0.5); Eosinophils % (Auto) 0 % (0-10); Hematocrit 41.5 % (41.0-53.0); Hemoglobin 14.3 g/dL (13.5-16.0); Immature Granulocytes Auto 0.49 Thou/mm3 (0.00-0.00); Lymphocytes # (Auto) 4.0 Thou/mm3 (1.0-4.8); Lymphocytes % (Auto) 16 % (10-50); Mean Corpuscular HGB Conc 34.5 g/dl (31.0-37.0); Mean Corpuscular Hemoglobin 28.9 pg (25.0-35.0); Mean Corpuscular Volume 84 fL (80-100); Monocytes # (Auto) 1.4 Thou/mm3 (0.0-0.8); Monocytes % (Auto) 6 % (0-12); Neutrophils # (Auto) 19.3 Thou/mm3 (1.8-7.7); Neutrophils % (Auto) 76 % (37-80); Nucleated Red Blood Cell # 0.00 Thou/mm3 (0.00-0.00); Nucleated Red Blood Cell % 0 /100 WBC (0); Platelet Count 301 Thou/mm3 (140-440); RDW Standard Deviation 39.3 fL (35.1-43.9); Red Blood Count 4.94 Miln/mm3 (4.50-5.90); White Blood Count 25.3 Thou/mm3 (3.8-10.6)
[2024-10-17 00:25] VITALS: BP 119/64; PULSE 132; RESP 14; TEMP 37; O2SAT 93
[2024-10-17 00:45] VITALS: BP 119/64; PULSE 112; RESP 23; O2SAT 91
[2024-10-17 00:46] VITALS: PULSE 113
[2024-10-17 00:51] LABS: Acetaminophen < 2.0 mcg/mL (10.0-20.0); Alanine Aminotransferase 136 U/L (10-49); Albumin, Serum 5.1 gm/dL (3.5-5.0); Albumin/Globulin Ratio 1.6 (1.2-2.2); Alcohol, Blood Medical < 3.0 mg/dL (0-10.0); Alkaline Phosphatase 114 U/L (46-116); Anion Gap 20 (7-16); Aspartate Amino Transferase 153 U/L (0-34); BUN/Creatinine Ratio 8 Ratio (12-20); Bilirubin,Total 0.4 mg/dL (0.3-1.2); Blood Urea Nitrogen 17 mg/dL (9-23); Calcium 10.1 mg/dL (8.3-10.6); Calcium (Corrected) 10.1 mg/dL (8.5-10.1); Carbon Dioxide 15.1 mMol/L (20.0-31.0); Chloride 105 mMol/L (98-107); Creatinine (Component) 2.2 mg/dL (0.6-1.3); Estimated Creatinine Clearance 52.4 mL/min (>60); Globulin 3.2 gm/dL (2.3-3.5); Glucose 269 mg/dL (74-106); Magnesium 2.7 mg/dL (1.6-2.6); Osmolality,Calculated 289 (275-295); Potassium 3.8 mMol/L (3.4-5.1); Salicylate < 3.0 mg/dL; Sodium 140 mMol/L (136-145); Total Protein 8.3 gm/dL (5.7-8.2); eGFR 39 See Note
[2024-10-17] MEDS: SODIUM CHLORIDE 0.9% 1000 ML 1,000 ML 999 ML IV (00:54)
[2024-10-17 01:32] LABS: Collection Type, Urine Catheter; WBC,Urine 0 /hpf (0-5)
[2024-10-17 01:47] LABS: Bacteria,Urine Rare; Bilirubin,Urine Negative (Negative); Blood,Urine 3+ (Negative); Clarity,Urine Turbid (Clear/Hazy); Color,Urine Yellow (Lt Yel-Yel); Glucose, Urine Trace (Negative); Ketones,Urine Negative (Negative); Leukocyte Esterase,Urine Negative (Negative); Nitrite,Urine Negative (Negative); PH,Urine 6.0 (5.0-7.0); Protein,Urine 2+ (Neg - Trace); RBC,Urine 2 /hpf (0-3); Specific Gravity,Urine 1.016 (1.001-1.035); Squamous Epithelial Cell,Urine 1 /hpf (0-5); Urobilinogen,Urine Negative mg/dL (0.0-1.0)
[2024-10-17 01:50] LABS: Amphetamine/Methamp Scrn,U Negative (Negative); Barbiturate Screen,Urine Negative (Negative); Benzodiazepines Screen,Urine Positive (Negative); Benzoylecgonine Screen, Ur Positive (Negative); Fentanyl Screen,Urine Negative (Negative); Opiate Screen,Urine Negative (Negative); THC Screen,Urine Negative (Negative)
[2024-10-17 02:00] VITALS: BP 114/85; PULSE 101; RESP 20; O2SAT 95
--- NOTE | 2024-10-17 02:13 | PRELIM_ITS ---
CT scan of the cervical spine without intravenous contrast (axial sections with sagittal and coronal reformats) October 17, 2024 0132 hours Clinical History: trauma No prior study is available for comparison. Findings: There is no fracture or traumatic subluxation. Straightening of the cervical spine is identified, which may be related to muscle spasm. The prevertebral soft tissues are unremarkable. Impression: No evidence of fracture or traumatic subluxation. Report Electronically Signed By: Brian Bansal 10/17/2024 2:12:43 AM [EST]
[2024-10-17 03:08] LABS: Basophils # (Auto) 0.0 Thou/mm3 (0.0-0.2); Basophils % (Auto) 0 % (0-2.5); Eosinophils # (Auto) 0.0 Thou/mm3 (0.0-0.5); Eosinophils % (Auto) 0 % (0-10); Hematocrit 35.6 % (41.0-53.0); Hemoglobin 12.7 g/dL (13.5-16.0); Immature Granulocytes Auto 0.19 Thou/mm3 (0.00-0.00); Lymphocytes # (Auto) 1.7 Thou/mm3 (1.0-4.8); Lymphocytes % (Auto) 8 % (10-50); Mean Corpuscular HGB Conc 35.7 g/dl (31.0-37.0); Mean Corpuscular Hemoglobin 28.7 pg (25.0-35.0); Mean Corpuscular Volume 81 fL (80-100); Monocytes # (Auto) 2.0 Thou/mm3 (0.0-0.8); Monocytes % (Auto) 9 % (0-12); Neutrophils # (Auto) 18.8 Thou/mm3 (1.8-7.7); Neutrophils % (Auto) 83 % (37-80); Nucleated Red Blood Cell # 0.00 Thou/mm3 (0.00-0.00); Nucleated Red Blood Cell % 0 /100 WBC (0); Platelet Count 212 Thou/mm3 (140-440); RDW Standard Deviation 38.3 fL (35.1-43.9); Red Blood Count 4.42 Miln/mm3 (4.50-5.90); White Blood Count 22.8 Thou/mm3 (3.8-10.6)
[2024-10-17 03:33] LABS: Anion Gap 13 (7-16); BUN/Creatinine Ratio 9 Ratio (12-20); Blood Urea Nitrogen 13 mg/dL (9-23); Calcium 8.5 mg/dL (8.3-10.6); Carbon Dioxide 19.2 mMol/L (20.0-31.0); Chloride 111 mMol/L (98-107); Creatinine (Component) 1.5 mg/dL (0.6-1.3); Estimated Creatinine Clearance 76.8 mL/min (>60); Glucose 92 mg/dL (74-106); Osmolality,Calculated 285 (275-295); Potassium 3.8 mMol/L (3.4-5.1); Sodium 143 mMol/L (136-145); eGFR > 60 See Note
[2024-10-17 03:50] LABS: Creatine Kinase 13971 U/L (34-171)
[2024-10-17 04:00] VITALS: BP 125/82; PULSE 108; RESP 20; O2SAT 95
[2024-10-17 06:27] LABS: Path Review Blood Smear Sent to Pathologist
== END 2024-10-17 05:20 | disposition left against medical advice (07) ==
PROVIDERS: Emergency Provider Emergency Medicine
DX: R44.3 Hallucinations, unspecified (principal); N18.9 Chronic kidney disease, unspecified; F14.10 Cocaine abuse, uncomplicated; S19.9XXA Unspecified injury of neck, initial encounter; X58.XXXA Exposure to other specified factors, initial encounter; Z78.1 Physical restraint status; Z53.29 Procedure and treatment not carried out because of patient's decision for other reasons
CPT/HCPCS: 36415; 72125; 80048; 80053; 80307; 80320; 80329; 81001; 82550; 83735; 85025; 93005; 96360; 96361; 96372; 99283; 99284; J1630; J3360; J7030; G0480

== ENCOUNTER 2024-12-01 16:36 | Emergency (ER) | payer MEDICAID, SELFPAY ==
--- NOTE | 2024-12-01 16:42 | PD.EDMEDCL ---
ED Medical Clearance RME/HPI General Chief complaint: Medical Clearance Stated complaint: HALFWAY CHECK Time Seen by Provider: 12/01/24 16:38 Arrival date/time: 12/01/24 16:36 Limitations: no limitations RME / HPI RME / HPI Narrative: 39 year old male with history of cocaine and methamphetamine use presents to the ED BIB [facility] for medical clearance for incarceration. Per officer, patient was arrested for being under the influence and no further history obtainable. On arrival to ED he is severely agitated and fighting the police officers from ambulance bay all the way to ED room 17. Officer later reports the mother on scene stated the patient snorted methamphetamine . Related Information Previous Rx's ?Medication ?Instructions ?Recorded cyclobenzaprine 5 mg tablet 5 mg PO TID PRN muscle spasm #30 11/16/23 tabs naproxen 500 mg tablet 500 mg PO BID PRN pain #30 tabs 11/16/23 Allergies Allergy/AdvReac Type Severity Reaction Status Date / Time bee venom protein (honey bee) Allergy Intermediate Swelling Verified 05/01/20 12:34 of the Eye Review of Systems Review of Systems ROS Unobtainable: unobtainable due to mental status Past Medical History Past Medical History CARDIAC: Negative Cardiac Disorders or Congestive Heart Failure RESPIRATORY: Negative Chronic Obstructive Pulmonary Disease (COPD) or Asthma GENITOURINARY: Negative Renal Disease ENDOCRINE: Negative Diabetes Mellitus Type 1 or Diabetes Mellitus Type 2 HEMATOLOGIC: Negative Sickle Cell Disease PSYCHO/SOCIAL: Positive Recreational Drug Use Social History SMOKING STATUS: Never smoker SUBSTANCE USE: crack/cocaine, opiates and methamphetamine ED Exam General Limitations: Present no limitations General appearance: Present other (Patient arrived severely agitated, fighting police officers all the way to the room, while being restrained he keeps shouting nonsensical phrases like they're going to shoot you , Dont shoot , I swear I'll drop the charges ) Head Head exam: Present atraumatic and normocephalic Eye Eye exam: Present normal appearance and EOMI ENT ENT exam: Present normal exam and mucous membranes moist Neck Neck exam: Present normal inspection and full ROM Chest Chest inspection: Present normal inspection Respiratory Respiratory exam: Absent respiratory distress Cardiovascular Cardiovascular exam: Present tachycardia Abdominal Exam Abdominal exam: Present soft and normal bowel sounds Extremities Exam Extremities exam: Present normal inspection Back Exam Back exam: Present normal inspection Neurological Exam Neurological exam: Present alert, oriented X3 and CN II-XII intact Psychiatric Psychiatric exam: Present other (Patient arrived severely agitated, fighting police officers all the way to the room, while being restrained he keeps shouting nonsensical phrases like they're going to shoot you , Dont shoot , I swear I'll drop the case . ) Skin Skin exam: Present warm, intact, normal color and diaphoresis Course Quality Measures none Orders Category Date Time Status Senior Bioinformatics Specialist NOW Care 12/01/24 16:42 Completed Continuous Pulse Oximetry NOW Care 12/01/24 16:42 Completed EKG (ED ONLY) *Do not use* NOW Care 12/01/24 16:58 Completed IV [Insert IV] NOW Care 12/01/24 16:42 Completed EKG (ED Only) Stat Exams 12/01/24 16:58 Draft Acetaminophen Stat Lab 12/01/24 18:07 Completed Alcohol, Blood Medical Stat Lab 12/01/24 18:07 Completed CBC Stat Lab 12/01/24 18:07 Completed CK [Creatine Kinase] Stat Lab 12/01/24 18:07 Completed CMP [Comprehensive Metabolic Panel] Stat Lab 12/01/24 18:07 Completed Drug Screen,Urine Stat Lab 12/01/24 19:06 Completed Free T4 (Free Thyroxine) Stat Lab 12/01/24 18:07 Completed Salicylate Stat Lab 12/01/24 18:07 Completed TSH [Thyroid Stimulating Hormone] Stat Lab 12/01/24 18:07 Completed Diazepam Inj [Valium Inj] Med 12/01/24 16:39 Discontinued 10 mg IM X1 ONE DiphenhydrAMINE INJ [Benadryl Inj] Med 12/01/24 16:39 Discontinued 25 mg IM X1 ONE Haloperidol Lactate [Haldol Inj] Med 12/01/24 16:39 Discontinued 10 mg IM X1 ONE Haloperidol Lactate [Haldol Inj] Med 12/01/24 16:56 Discontinued 5 mg .ROUTE .STK-MED ONE Sodium Chloride 0.9% 1000 ml [Ns] 1,000 ml Med 12/01/24 16:54 Discontinued IV 999 mls/hr Sodium Chloride 0.9% 1000 ml [Ns] 1,000 ml Med 12/01/24 16:55 Discontinued IV 999 mls/hr Vital Signs Vital signs: Vital Signs Pulse Rate 122 H 12/01/24 18:01 Medical Clearance MDM Narrative MDM Narrative:: IBernadette, am scribing for and in the presence of Dr. Wooten. 1645h: Patient arrived severely agitated and placed in 4-point soft restraints. However, patient managed to get his hands free and a code tahmina was called. Medications were ordered. 1650h: Patient given Diazepam, Haldol, and Benadryl. Vital signs 237/85, saturating 96% on room air, HR 180s. 1745h: Patient is awake and answering questions. Requesting water. HR 120s. 1800h: Care signed out to Dr. Padilla pending labs and final disposition. Patient data External records reviewed:: [facility] previous records (I reviewed ED visit on 03/25/2024 for cocaine abuse ) Clinical information provided by:: law enforcement Social determinants that could affect healthcare access:: substance use (meth and cocaine ) Patient has the following chronic illnesses:: Meth and cocaine abuse How is presenting disease/condition affected by chronic disease/condition?: exacerbated by Evaluation data The following diagnostics were reviewed and interpreted by me:: other (specify) (Labs ordered and are pending to be drawn ) Lab and/or radiology exams considered but not ordered:: None Interpretation Summary: no diagnostics resulted during sign out Medications / Prescriptions Medications or Prescriptions considered but not ordered:: None Medication administrations:: Medication Administration History Discontinued Medications Diazepam (Diazepam Inj 5 Mg/Ml Vial 2 Ml) 10 mg IM X1 ONE Stop: 12/01/24 16:40 Last Admin: 12/01/24 16:50 Dose: 10 mg Documented By: NOEMÍ Diphenhydramine HCl (Diphenhydramine Inj 50 Mg/Ml Vial) 25 mg IM X1 ONE Stop: 12/01/24 16:40 Last Admin: 12/01/24 16:49 Dose: 25 mg Documented By: NOEMÍ Haloperidol Lactate (Haloperidol Lact Inj 5 Mg/Ml Vial) 10 mg IM X1 ONE Stop: 12/01/24 16:40 Last Admin: 12/01/24 16:50 Dose: 10 mg Documented By: NOEMÍ Haloperidol Lactate (Haloperidol Lact Inj 5 Mg/Ml Vial) Confirm Administered Dose 5 mg .ROUTE .STK-MED ONE Stop: 12/01/24 16:57 Last Admin: 12/01/24 17:01 Dose: Not Given Documented By: NOEMÍ Non-Admin Reason: Duplicate Medication on eMAR Sodium Chloride (Ns) 1,000 mls @ 999 mls/hr IV .Q1H1M ONE Stop: 12/01/24 17:54 Last Infusion: 12/01/24 20:13 Dose: Infused Documented By: Admin: 12/01/24 17:57 Dose: 999 mls/hr Documented By: NOEMÍ Sodium Chloride (Ns) 1,000 mls @ 999 mls/hr IV .Q1H1M ONE Stop: 12/01/24 17:55 Last Infusion: 12/01/24 20:13 Dose: Infused Documented By: Admin: 12/01/24 17:58 Dose: 999 mls/hr Documented By: NOEMÍ See above Consultations Consultation(s) initiated? (list below): No Diagnosis Medical Clearance Differential Diagnosis: other (Methamphetamine abuse, Cocaine abuse, acute psychosis ) Most likely diagnosis given after review of the tests above:: Drug use Admission Indicated Admission indicated?: not indicated Explain why admission is indicated or not indicated:: Signed out pending final disposition Admission Request Was there a request for admission?: No Disposition Plan Disposition Plan: other (specify) (Signed out to Dr. padilla ) Critical Care Time Critical Care Time Critical Care Time: Yes Total Critical Care Time (min.): 45 Attestation: The high probability of sudden, clinically significant deterioration in the patient's condition required the highest level of my preparedness to intervene urgently. The services I provided to this patient were to treat and/or prevent clinically significant deterioration. Services included the following: chart data review, reviewing nursing notes and/or old charts, documentation time, regulatory affairs consultant collaboration regarding findings and treatment options, medication orders and management, direct patient care, vital sign assessments and ordering, interpreting and reviewing diagnostic studies and lab tests. Aggregate critical care time includes only time during which I was engaged in work directly related to the patient's care, as described above, whether at bedside or elsewhere in the Emergency Department. It did not include time spent performing other reported procedures or the services of residents, students, nurses or physician assistants. Discharge Plan Plan Patient Disposition: HOME (Self Care) Prescriptions/Referrals Prescriptions/Med Rec: No Action naproxen 500 mg tablet 500 mg PO BID PRN (Reason: pain) Qty: 30 0RF cyclobenzaprine 5 mg tablet 5 mg PO TID PRN (Reason: muscle spasm) Qty: 30 0RF Referrals: No Primary/Family,Physician [Primary Care Provider] - In 1 week Problem List Clinical Impression: Cocaine abuse Patient/Caregiver Discharge Instructions Education Materials: Cocaine: Understanding Its Effects, Cocaine: Getting Help Additional Instructions: Avoid cocaine in the future. Follow-up with your doctor. Return to ER as needed or if condition worsens. Print Language: Polish Stand Alone Forms: Henny Award Info., Patient Portal Info Letter
[2024-12-01] MEDS: HALOPERIDOL LACT INJ 5 MG/ML VIAL 10 MG IM (16:50)
[2024-12-01] MEDS: DIAZEPAM INJ 5 MG/ML VIAL 2 ML 10 MG IM (16:50)
--- NOTE | 2024-12-01 16:58 | EKG_ITS ---
[facility] Test Date: 2024-12-01 Pat Name: ERIC RENEE Department: Room: - Gender: Male Crisis Worker: : 1985 Requested By: Justice Magallon Order Number: [id number] Reading MD: Justice Magallon Measurements Intervals [place] Rate: 116 P: 18 KS: 141 QRS: 82 QRSD: 96 T: -5 QT: 349 QTc: 485 Interpretive Statements SINUS TACHYCARDIA ABNORMAL QRS-T ANGLE [QRS-T AXIS DIFFERENCE > 60] Compared to ECG 10/17/2024 00:04:16 T-wave abnormality no longer present /store/S0/[id number].pdf
[2024-12-01 17:55] VITALS: BMI 37.1
[2024-12-01] MEDS: SODIUM CHLORIDE 0.9% 1000 ML 1,000 ML 999 ML IV ×2 (17:57→17:58)
[2024-12-01 18:01] VITALS: PULSE 122
[2024-12-01 18:06] VITALS: BP 154/64; PULSE 126; RESP 17; O2SAT 98
--- NOTE | 2024-12-01 18:16 | PD.EDADDENDU ---
Emergency Room Addendum <Ivanna Hastings - Last Filed: 12/01/24 19:47> Addendum Narrative: 1800: Care assumed from Dr. Wooten, the previous shift emergency physician. Past medical, surgical, social and family history reviewed. Vitals and home medications reviewed. Results and treatment plan discussed. I will assume the care of the patient at this time and will follow the patient, pending work-up. Please refer to the emergency department record for history and examination from initial visit. <Trenton Rizvi DO - Last Filed: 12/01/24 19:50> Addendum Narrative: 1800: Care assumed from Dr. Wooten, the previous shift emergency physician. Past medical, surgical, social and family history reviewed. Vitals and home medications reviewed. Results and treatment plan discussed. I will assume the care of the patient at this time and will follow the patient, pending work-up. Please refer to the emergency department record for history and examination from initial visit. Patient's workup came back showing urinary tox cream positive for cocaine. Patient rested comfortably since the patient was signed out to me. CPK was 1100. Patient was hydrated with 2 L of IV normal saline. Kidney function is very comparable to where it has been in the past. I reviewed all labs and interpreted all labs. EKG is nonischemic. Patient feels well and wishes to go home. Patient was counseled on the need to avoid cocaine in the future. He does have primary care follow-up. He may return to emergency room as needed or if condition worsens.
[2024-12-01 18:32] LABS: Basophils # (Auto) 0.0 Thou/mm3 (0.0-0.2); Basophils % (Auto) 0 % (0-2.5); Eosinophils # (Auto) 0.0 Thou/mm3 (0.0-0.5); Eosinophils % (Auto) 0 % (0-10); Hematocrit 39.6 % (41.0-53.0); Hemoglobin 13.4 g/dL (13.5-16.0); Immature Granulocytes Auto 0.09 Thou/mm3 (0.00-0.00); Lymphocytes # (Auto) 1.6 Thou/mm3 (1.0-4.8); Lymphocytes % (Auto) 10 % (10-50); Mean Corpuscular HGB Conc 33.8 g/dl (31.0-37.0); Mean Corpuscular Hemoglobin 28.4 pg (25.0-35.0); Mean Corpuscular Volume 84 fL (80-100); Monocytes # (Auto) 1.1 Thou/mm3 (0.0-0.8); Monocytes % (Auto) 6 % (0-12); Neutrophils # (Auto) 13.7 Thou/mm3 (1.8-7.7); Neutrophils % (Auto) 83 % (37-80); Nucleated Red Blood Cell # 0.00 Thou/mm3 (0.00-0.00); Nucleated Red Blood Cell % 0 /100 WBC (0); Platelet Count 234 Thou/mm3 (140-440); RDW Standard Deviation 41.3 fL (35.1-43.9); Red Blood Count 4.72 Miln/mm3 (4.50-5.90); White Blood Count 16.6 Thou/mm3 (3.8-10.6)
[2024-12-01 18:57] LABS: Acetaminophen < 2.0 mcg/mL (10.0-20.0); Alanine Aminotransferase 79 U/L (10-49); Albumin, Serum 4.7 gm/dL (3.5-5.0); Albumin/Globulin Ratio 1.5 (1.2-2.2); Alcohol, Blood Medical < 3.0 mg/dL (0-10.0); Alkaline Phosphatase 82 U/L (46-116); Anion Gap 17 (7-16); Aspartate Amino Transferase 46 U/L (0-34); BUN/Creatinine Ratio 11 Ratio (12-20); Bilirubin,Total 0.5 mg/dL (0.3-1.2); Blood Urea Nitrogen 19 mg/dL (9-23); Calcium 10.0 mg/dL (8.3-10.6); Calcium (Corrected) 10.0 mg/dL (8.5-10.1); Carbon Dioxide 18.8 mMol/L (20.0-31.0); Chloride 106 mMol/L (98-107); Creatine Kinase 1108 U/L (34-171); Creatinine (Component) 1.7 mg/dL (0.6-1.3); Estimated Creatinine Clearance 67.3 mL/min (>60); Free T4 (Free Thyroxine) 2.05 ng/dL (0.89-1.76); Globulin 3.1 gm/dL (2.3-3.5); Glucose 93 mg/dL (74-106); Osmolality,Calculated 285 (275-295); Potassium 3.4 mMol/L (3.4-5.1); Salicylate < 3.0 mg/dL; Sodium 142 mMol/L (136-145); Thyroid Stimulating Hormone 1.26 uIU/mL (0.55-4.78); Total Protein 7.8 gm/dL (5.7-8.2); eGFR 53 See Note
[2024-12-01 19:21] VITALS: BP 156/74; PULSE 116; RESP 25; O2SAT 100
[2024-12-01 19:29] LABS: Amphetamine/Methamp Scrn,U Negative (Negative); Barbiturate Screen,Urine Negative (Negative); Benzodiazepines Screen,Urine Positive (Negative); Benzoylecgonine Screen, Ur Positive (Negative); Fentanyl Screen,Urine Negative (Negative); Opiate Screen,Urine Negative (Negative); THC Screen,Urine Negative (Negative)
[2024-12-01 20:14] VITALS: BP 156/74; PULSE 113; RESP 26; O2SAT 100
== END 2024-12-01 20:15 | disposition home or self-care (01) ==
PROVIDERS: Emergency Provider Emergency Medicine
DX: Z02.89 Encounter for other administrative examinations (principal); F14.10 Cocaine abuse, uncomplicated
CPT/HCPCS: 36415; 80053; 80307; 80320; 80329; 82550; 84439; 84443; 85025; 93005; 96360; 96361; 96372; 99283; J1200; J1630; J3360; J7030; G0480

== ENCOUNTER 2025-01-10 17:27 | Emergency (ER) | payer OTHER, MEDICAID, SELFPAY ==
[2025-01-10] VITALS (7 sets, daily range): BP systolic 128–165; BP diastolic 78–98; PULSE 93–165; RESP 17–30; TEMP 36.5–37.9; O2SAT 93–97; BMI 31.9
--- NOTE | 2025-01-10 17:28 | PC.NURSE ---
Patient to er via ems and [employer]. Patient was at work, acting eractic. combative, [employer] was their on ems arrival, per children's ministry director patient was not answering EMS questions, patient making verbal threats to EMS, [employer] found a baggie on patient with white residual. Patient in the er last week and stitches to back of head from last visit bleeding do to patient thrashing around. Currently, patient appears paranoid, answering some questions. When asking if patient took any drugs he states cocaine . Patient allowing nursing staff to do vs. Provider aware of patient status. [employer] remains at bedside.
--- NOTE | 2025-01-10 17:47 | PC.NURSE ---
Upon [employer] removal of handcuffs to place iv, patient resistent, agitated, per [employer] officer, patient kicking at officer, 4 pt. hard restraints initiated.
--- NOTE | 2025-01-10 17:54 | EKG_ITS ---
[facility] Test Date: 2025-01-10 Pat Name: ERIC RENEE Department: Room: - Gender: Male Package Car Driver: : 1985 Requested By: Hugh Tineo Order Number: [id number] Reading MD: Hugh Tineo Measurements Intervals [place] Rate: 142 P: 63 AR: 135 QRS: 68 QRSD: 94 T: 37 QT: 354 QTc: 546 Interpretive Statements SINUS TACHYCARDIA, POSSIBLE ATRIAL FLUTTER NONSPECIFIC T-WAVE ABNORMALITY ABNORMAL RHYTHM ECG Compared to ECG 12/01/2024 18:21:26 T-wave abnormality now present /store/S0/[id number]/ecg/[id number].pdf
--- NOTE | 2025-01-10 17:54 | EDNOTE_ITS ---
ED General RME/HPI General Chief complaint: General Adult/Misc Complain Stated complaint: UNDER THE INFLUENCE Time Seen by Provider: 01/10/25 17:51 Arrival date/time: 01/10/25 17:27 RME / HPI RME / HPI narrative: 39-year-old male patient with significant history of meth abuse, cocaine abuse, marijuana abuse, alcohol abuse, was brought in by law enforcement for 5150 hold. 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 Patient is looks very suspicious, anxious, and nonverbal. Does not answer questions. Related Data Previous Rx's ?Medication ?Instructions ?Recorded cyclobenzaprine 5 mg tablet 5 mg PO TID PRN muscle spa sm #30 11/16/23 tabs naproxen 500 mg tablet 500 mg PO BID PRN pain #30 t abs 11/16/23 bacitracin 500 unit/gram topical 1 applic topical Q8H #14 grams 01/04/25 ointment Allergies Allergy/AdvReac Type Severity Reaction Status Date / Time bee venom protein (honey bee) Allergy Intermediate Swelling Verified 05/01/20 12:34 of the Eye Review of Systems Review of Systems Narrative Review of Systems: Review of system reviewed and within normal limits except mentioned in HPI ED Exam Narrative Physical exam: VITAL SIGNS: Reviewed. GENERAL APPEARANCE: Alert and awake, anxious, nonverbal, no acute distress, HEAD AND FACE:+ Rebecca intact on the scalp no redness no drainage ENT: PERRL, pink conjunctivitis, eyelid no trauma, Mucous membrane moist. NECK: Supple, nontender, no nuchal rigidity. CHEST: No tenderness, no crepitus, no paradoxical movement, no retractions. LUNGS: Clear, well ventilated, symmetric, no rales, no wheezing, no ronchi, no stridor, good breath sounds bilaterally. HEART: Regular rate, regular rhythm, no murmur, no gallops. ABDOMEN: Soft, positive bowel sounds, nondistended, no guarding, nontender, no rebound, no masses, RECTAL: Deferred. GENITAL: Deferred. NEUROLOGICAL: Gross motor function intact sensory function intact, Appropriate for age. MUSCULOSKELETAL: low back nontender, full range of motion. EXTREMITIES: Nontender, full range of motion. SKIN: Color pink, dry, no rash, no lacerations, no abrasions, no contusions. LYMPHATICS: Deferred. Course Quality Measures none Orders Category Date Time Status 4 HR Behavioral Restraints Q15M Care 01/10/25 17:46 Completed Plating Foreman Q4H START 00 Care 01/10/25 17:49 Active Plating Foreman Q4H START 00 Care 01/10/25 17:51 Completed EKG (ED ONLY) *Do not use* NOW Care 01/10/25 17:[address] head/brain wo con Stat Exams 01/10/25 17:56 Completed EKG (ED Only) Stat Exams 01/10/25 17:54 Draft Acetaminophen Stat Lab 01/10/25 17:50 Completed Alcohol, Blood Medical Stat Lab 01/10/25 17:50 Completed CBC Stat Lab 01/10/25 17:50 Completed CMP [Comprehensive Metabolic Panel] Stat Lab 01/10/25 17:50 Completed Drug Screen,Urine Stat Lab 01/10/25 19:30 Completed Salicylate Stat Lab 01/10/25 17:50 Completed Urinalysis Stat Lab 01/10/25 19:30 Completed Midazolam Inj [Versed Inj] Med 01/10/25 17:51 Discontinued 5 mg IVP X1 ONE Ringers Lactated 1000 ml [Lactated Ringers] 1,000 ml Med 01/10/25 17:51 Discontinued IV 999 mls/hr Vital Signs Vital signs: Vital Signs Temperature 100.3 F 01/10/25 17:28 Pulse Rate 155 H 01/10/25 17:28 Respiratory Rate 17 01/10/25 17:28 Blood Pressure 165/80 H 01/10/25 17:28 Pulse Oximetry (%) 93 L 01/10/25 17:28 Oxygen Delivery Method Room Air 01/10/25 17:28 Discharge Plan Prescriptions/Referrals Prescriptions/Med Rec: No Action naproxen 500 mg tablet 500 mg PO BID PRN (Reason: pain) Qty: 30 0RF cyclobenzaprine 5 mg tablet 5 mg PO TID PRN (Reason: muscle spasm) Qty: 30 0RF bacitracin 500 unit/gram ointment 1 applic topical Q8H Qty: 14 0RF Referrals: No Primary/Family,Physician [Primary Care Provider] - In 1 week Problem List Clinical Impression: Drug-induced psychotic disorder Patient/Caregiver Discharge Instructions Print Language: Thai MDM Narrative MDM hospital course (for use when minimal MDM required): 39-year-old male patient with significant history of meth abuse, cocaine abuse, marijuana abuse, alcohol abuse, was brought in by law enforcement for 5150 hold. 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 Patient is looks very suspicious, anxious, and nonverbal. Does not answer questions. Patient tested positive for cocaine and benzo and alcohol level also was slightly elevated. 51. Patient CT scan of the head came back unremarkable. Patient is medically cleared for crisis intervention. Care transferred to Dr Yepez at 11 pm for final disposition Medication Administration(s) Medication Administration History Discontinued Medications Lactated Ringer's (Lactated Ringers) 1,000 mls @ 999 mls/hr IV .Q1H1M ONE Stop: 01/10/25 18:51 Last Infusion: 01/10/25 20:32 Dose: Infused Documented By: Admin: 01/10/25 17:58 Dose: 999 mls/hr Documented By: REKHA Midazolam HCl (Midazolam Inj 1 Mg/Ml Vial 2 Ml) 5 mg IVP X1 ONE Stop: 01/10/25 17:52 Last Admin: 01/10/25 17:58 Dose: 5 mg Documented By: REKHA Diagnosis Differential Diagnosis ED Complaint MDM: Drug-induced psychotic behavior, suicidal ideation, cocaine abuse Diagnoses ruled out and/or further discussions: Drug-induced psychotic behavior
--- NOTE | 2025-01-10 17:56 | XR_ITS ---
Examination: CT brain head without contrast. 2-D sagittal coronal reconstructions Date and time of exam:January 10, 2025, 8:49 PM Indications: Injury to the head today, head pain CTDI: vol (mGy):53.1 DLP: (mGycm):1056 Technique: Multiple CT axial sections of the brain have been obtained, 5 mm slice thickness. Contrast has not been administered. 2-D sagittal, coronal reconstructions have been obtained Low dose protocols were performed. One or more of the following dose reduction techniques were used; automated exposure control, adjustment of the mA and/or KV according to patient size, use of iterative reconstruction technique. Findings: No significant ventricular enlargement. Intra-axial or extra-axial hemorrhage density is not seen. No mass effect or midline shift Basal cisterns are not remarkable. Fourth ventricle is midline. Cranial vault intact. Impression: Negative for acute hemorrhage, mass effect or midline shift
[2025-01-10] MEDS: MIDAZOLAM INJ 1 MG/ML VIAL 2 ML 5 MG IVP (17:58)
[2025-01-10] MEDS: RINGERS LACTATED 1000 ML 1,000 ML 999 ML IV (17:58)
[2025-01-10 18:09] LABS: Basophils # (Auto) 0.1 Thou/mm3 (0.0-0.2); Basophils % (Auto) 0 % (0-2.5); Eosinophils # (Auto) 0.0 Thou/mm3 (0.0-0.5); Eosinophils % (Auto) 0 % (0-10); Hematocrit 40.7 % (41.0-53.0); Hemoglobin 14.1 g/dL (13.5-16.0); Immature Granulocytes Auto 0.14 Thou/mm3 (0.00-0.00); Lymphocytes # (Auto) 2.7 Thou/mm3 (1.0-4.8); Lymphocytes % (Auto) 15 % (10-50); Mean Corpuscular HGB Conc 34.6 g/dl (31.0-37.0); Mean Corpuscular Hemoglobin 28.6 pg (25.0-35.0); Mean Corpuscular Volume 83 fL (80-100); Monocytes # (Auto) 1.0 Thou/mm3 (0.0-0.8); Monocytes % (Auto) 5 % (0-12); Neutrophils # (Auto) 14.5 Thou/mm3 (1.8-7.7); Neutrophils % (Auto) 79 % (37-80); Nucleated Red Blood Cell # 0.00 Thou/mm3 (0.00-0.00); Nucleated Red Blood Cell % 0 /100 WBC (0); Platelet Count 272 Thou/mm3 (140-440); RDW Standard Deviation 39.1 fL (35.1-43.9); Red Blood Count 4.93 Miln/mm3 (4.50-5.90); White Blood Count 18.4 Thou/mm3 (3.8-10.6)
--- NOTE | 2025-01-10 18:09 | PC.NURSE ---
[employer] placed patient on 72hr hold for harm to self and harm to others
[2025-01-10 18:31] LABS: Acetaminophen < 2.0 mcg/mL (10.0-20.0); Alanine Aminotransferase 48 U/L (10-49); Albumin, Serum 5.2 gm/dL (3.5-5.0); Albumin/Globulin Ratio 1.8 (1.2-2.2); Alcohol, Blood Medical 51.0 mg/dL (0-10.0); Alkaline Phosphatase 90 U/L (46-116); Anion Gap 17 (7-16); Aspartate Amino Transferase 26 U/L (0-34); BUN/Creatinine Ratio 7 Ratio (12-20); Bilirubin,Total 0.4 mg/dL (0.3-1.2); Blood Urea Nitrogen 11 mg/dL (9-23); Calcium 9.8 mg/dL (8.3-10.6); Calcium (Corrected) 9.8 mg/dL (8.5-10.1); Carbon Dioxide 20.4 mMol/L (20.0-31.0); Chloride 106 mMol/L (98-107); Creatinine (Component) 1.6 mg/dL (0.6-1.3); Estimated Creatinine Clearance 70.8 mL/min (>60); Globulin 2.9 gm/dL (2.3-3.5); Glucose 164 mg/dL (74-106); Osmolality,Calculated 288 (275-295); Potassium 3.6 mMol/L (3.4-5.1); Salicylate < 3.0 mg/dL; Sodium 143 mMol/L (136-145); Total Protein 8.1 gm/dL (5.7-8.2); eGFR 57 See Note
--- NOTE | 2025-01-10 19:29 | PC.NURSE ---
Patient displayed calm and cooperative behavior during the assessment and throughout the observation period. No signs of agitation, distress, or anxiety were observed. Vital signs obtained and charted, and the patient was alert and oriented x4. Given the patient?s appropriate behavior and the absence of safety concerns, the restraints were removed. A sitter was provided for ongoing monitoring to ensure patient safety.
[2025-01-10 19:54] LABS: Collection Type, Urine Clean Catch
[2025-01-10 19:58] LABS: Bilirubin,Urine Negative (Negative); Blood,Urine Trace (Negative); Clarity,Urine Clear (Clear/Hazy); Color,Urine Lt-Yellow (Lt Yel-Yel); Glucose, Urine Negative (Negative); Ketones,Urine Negative (Negative); Leukocyte Esterase,Urine Negative (Negative); Nitrite,Urine Negative (Negative); PH,Urine 5.5 (5.0-7.0); Protein,Urine 1+ (Neg - Trace); RBC,Urine 2 /hpf (0-3); Specific Gravity,Urine 1.014 (1.001-1.035); Squamous Epithelial Cell,Urine < 1 /hpf (0-5); Urobilinogen,Urine Negative mg/dL (0.0-1.0); WBC,Urine 5 /hpf (0-5)
[2025-01-10 21:15] LABS: Amphetamine/Methamp Scrn,U Negative (Negative); Barbiturate Screen,Urine Negative (Negative); Benzodiazepines Screen,Urine Positive (Negative); Benzoylecgonine Screen, Ur Positive (Negative); Fentanyl Screen,Urine Negative (Negative); Opiate Screen,Urine Negative (Negative); THC Screen,Urine Negative (Negative)
--- NOTE | 2025-01-10 23:02 | PD.EDADDENDU ---
Emergency Room Addendum <Ivanna Hastings - Last Filed: 01/10/25 23:03> Addendum Narrative: I took over the care from Hugh Tineo at 11 PM on 01/10/2025, see notes for complete H&P and ED course. Pending evaluation by our ED Production Clerk in the morning. At 6 AM on 01/11/2025, the care of the patient was transferred to Dr. Castaneda. During my watch, the patient remained stable. <Lucas Yepez MD - Last Filed: 01/11/25 02:45> Addendum Narrative: I took over the care from Hugh Tineo, NETWORK DIAGNOSTIC SUPPORT SPECIALIST at 11 PM on 01/10/2025, see notes for complete H&P and ED course. I reviewed all diagnostic test results. Pending evaluation by our ED Production Clerk in the morning. Patient is medically cleared for further psychiatric care. At 6 AM on 01/11/2025, the care of the patient was transferred to Dr. Castaneda. During my watch, the patient remained stable.
--- NOTE | 2025-01-11 06:24 | PD.EDADDENDU ---
Emergency Room Addendum Addendum Narrative: 0600: Care assumed from Dr. Yepez, the previous shift emergency physician. Past medical, surgical, social and family history reviewed. Vitals and home medications reviewed. I will assume the care of the patient at this time, pending psychiatric evaluation. Please refer to the emergency department record for history and examination from initial visit.? Physical exam by me shows patient under no acute distress at this time. 1100: consulting services project manager cleared the patient, patient had a safety plan in place, and will be discharged home
[2025-01-11 06:27] VITALS: BP 129/88; PULSE 89; RESP 17; TEMP 36.6; O2SAT 100
[2025-01-11 07:17] VITALS: BP 126/81; PULSE 80; RESP 16; TEMP 36.6; O2SAT 96
[2025-01-11 10:39] VITALS: BP 158/96; PULSE 93; RESP 19; TEMP 36.8; O2SAT 97
[2025-01-11 11:12] VITALS: BP 154/93; PULSE 87; RESP 17; TEMP 36.7; O2SAT 98
--- NOTE | 2025-01-11 16:58 | PC.CC ---
Patient is a 39 year-old year old male who presents to the hospital for being under the influence- placed on a 5150 DTS hold by [facility]. Churn Driller made [id number] contact with patient to complete assessment. Churn Driller introduced self, role, and reason for assessment. Churn Driller disclosed limits of confidentiality as well. Patient appeared alert and oriented to self, place, and situation. Patient made appropriate eye contact with this publicity writer and remained euthymic throughout assessment. Patient?s attitude appeared nervous but cooperative. No signs of delusions, paranoia or hallucinations. Patient confirmed information on demographics and reports to living with at home with family but spend a lot of time with girlfriend. Patient reports that yesterday he made decision to take THC edibles after already having done cocaine and drank alcohol. Pt reports having a substance abuse problem. No history of mental health. At the time of encounter patient denied suicidal and homicidal ideation; visual and auditory hallucinations. Patient reports feeling better and is no longer having suicidal thoughts. Patient reports feeling safe being discharged and will like to return home. Churn Driller explored with patient what he has to look forward to he stated to find support for substance abuse disorder. Patient scored High-Risk on the Ackerman Screening. Patient toxicology was positive for THC. Upon clinical consultation with [facility], Tory patient does not meet criteria for 5150-hold and safety plan will be established with patient and life partner Delio Enamorado. Churn Driller provided update of safety plan to medical team and discharge plan.
== END 2025-01-11 11:27 | disposition home or self-care (01) ==
PROVIDERS: Nurse Practitioner Family; Emergency Provider Emergency Medicine
DX: F14.159 Cocaine abuse with cocaine-induced psychotic disorder, unspecified (principal)
CPT/HCPCS: 36415; 70450; 80053; 80307; 80320; 80329; 81001; 85025; 93005; 96127; 96361; 96374; 99284; J2250; J7120; G0480

== ENCOUNTER 2025-01-23 15:17 | Emergency (ER) | payer OTHER, MEDICAID, SELFPAY ==
[2025-01-23 15:18] VITALS: BP 155/91; PULSE 166; RESP 20; TEMP 37.7; O2SAT 96
[2025-01-23 15:34] VITALS: BMI 31.3
--- NOTE | 2025-01-23 15:39 | EDNOTE_ITS ---
ED General RME/HPI General Chief complaint: Medical Clearance Stated complaint: CUSTODIAL CHECK Time Seen by Provider: 01/23/25 15:32 Arrival date/time: 01/23/25 15:17 CC: Tachycardia, medical clearance HPI patient present to the ER via tachycardia. Patient is well-known for schizophrenia does not take his medications on a regular basis and is known for methamphetamine and cocaine abuse. Officer who presented the patient in [facility] states rolled up dollar with white powdery substance was found in his pockets. Patient is awake alert admits that he is not taking his medications for the past week. Patient currently denies any pain Related Data Previous Rx's ?Medication ?Instructions ?Recorded cyclobenzaprine 5 mg tablet 5 mg PO TID PRN muscle spa sm #30 11/16/23 tabs naproxen 500 mg tablet 500 mg PO BID PRN pain #30 t abs 11/16/23 bacitracin 500 unit/gram topical 1 applic topical Q8H #14 grams 01/04/25 ointment Allergies Allergy/AdvReac Type Severity Reaction Status Date / Time bee venom protein (honey bee) Allergy Intermediate Swelling Verified 05/01/20 12:34 of the Eye Review of Systems Review of Systems Narrative Review of Systems: GEN: No fever, no chills, no weight loss EYES: No discharge, no visual changes, no pain HEENT: No ear pain, no congestion, no sore throat PULM: No shortness of breath, no cough, no congestion CV: No chest pain, no dyspnea on exertion, no palpitations GI: No nausea, no vomiting, no diarrhea, no pain, no constipation : No frequency, no urgency, no dysuria MUSC/SKEL: No joint pain, no back pain SKIN: No rash PSYCH: No hallucinations, no depression HEME/LYMPH: No easy bleeding or bruising tendencies NEURO: No weakness, no headache Past Medical History Past Medical History CARDIAC: Negative Cardiac Disorders or Congestive Heart Failure RESPIRATORY: Negative Chronic Obstructive Pulmonary Disease (COPD) or Asthma GENITOURINARY: Negative Renal Disease ENDOCRINE: Negative Diabetes Mellitus Type 1 or Diabetes Mellitus Type 2 HEMATOLOGIC: Negative Sickle Cell Disease PSYCHO/SOCIAL: Positive Recreational Drug Use Social History SMOKING STATUS: Unknown if ever smoked SUBSTANCE USE: crack/cocaine, opiates and methamphetamine ED Exam Narrative Physical exam: [General: Not in any acute distress Head normocephalic HEENT: Within acceptable limits Neck is supple nontender Chest equal chest rise nontender to palpation Respiratory: Clear to auscultation no wheezes crackles or rubs CV: Rate rhythm is regular no murmurs rubs or clicks Abdomen is soft nontender no masses positive bowel sounds all 4 quadrants Back: No CVA tenderness no spinous process tenderness from cervical spine thoracic and lumbar spine Skin: Intact no petechiae rash induration ulceration or crepitus Extremities: Moving all extremity against resistance cap refill less than 2 seconds neurosensory intact Neuro: Awake alert oriented x3 Glascow coma 15 no focal deficits] Course Course Course Narrative: After several medications the patient is continue to remain tachycardic this time the patient has been cited and released by PD and will be taken home by his mother who is at bedside. The patient is awake alert oriented x 2. Patient is not aggressive and not verbally be abusive to anyone. Quality Measures none Orders Category Date Time Status Diazepam Inj [Valium Inj] Med 01/23/25 16:00 Discontinued 10 mg IM X1 ONE Midazolam Inj [Versed Inj] Med 01/23/25 18:52 Discontinued 5 mg IM X1 ONE OLANZapine [ZyPREXA] Med 01/23/25 17:22 Discontinued 5 mg PO X1 ONE Vital Signs Vital signs: Vital Signs Temperature 100 F 01/23/25 15:18 Pulse Rate 166 H 01/23/25 15:18 Respiratory Rate 20 01/23/25 15:18 Blood Pressure 155/91 H 01/23/25 15:18 Pulse Oximetry (%) 96 01/23/25 15:18 Oxygen Delivery Method Room Air 01/23/25 15:18 Discharge Plan Plan Patient Disposition: HOME (Self Care) Patient condition on transfer: Stable Prescriptions/Referrals Prescriptions/Med Rec: No Action naproxen 500 mg tablet 500 mg PO BID PRN (Reason: pain) Qty: 30 0RF cyclobenzaprine 5 mg tablet 5 mg PO TID PRN (Reason: muscle spasm) Qty: 30 0RF bacitracin 500 unit/gram ointment 1 applic topical Q8H Qty: 14 0RF Referrals: Valeriy Hastings MD [Physician, Family Practice] - In 1 week No Primary/Family,Physician [Primary Care Provider] - In 1 week Problem List Clinical Impression: Tachycardia, Substance abuse Patient/Caregiver Discharge Instructions Other Activity Instructions:: Please restart your psychiatric medications as prescribed. Education Materials: ED Drug Abuse Additional Instructions: Rest drink plenty of fluids avoid all cocaine or methamphetamines. Restart your psychiatric medications. Print Language: Nepali Stand Alone Forms: Henny Award Info., Patient Portal Info Letter PA/EZIO Supervising Physician MAGDALENA/EZIO Supervising Physician: Moiz Tee ENP [facility] Clinical Information Provided by: patient and law enforcement [facility] Meds/Rx considered, not ordered None Labs/Rad/Tests considered, not ordered None Chronic Illness/Social Conditions Explain: Schizophrenia EKG EKG not done Labs Labs: none Imaging Imaging interpretation: none Medication Administration(s) Medication Administration History Discontinued Medications Diazepam (Diazepam Inj 5 Mg/Ml Vial 2 Ml) 10 mg IM X1 ONE Stop: 01/23/25 16:01 Last Admin: 01/23/25 15:59 Dose: 10 mg Documented By: TD Midazolam HCl (Midazolam Inj 1 Mg/Ml Vial 2 Ml) 5 mg IM X1 ONE Stop: 01/23/25 18:53 Last Admin: 01/23/25 19:17 Dose: 5 mg Documented By: TD Olanzapine (Olanzapine 5 Mg Tablet) 5 mg PO X1 ONE Stop: 01/23/25 17:23 Last Admin: 01/23/25 17:49 Dose: 5 mg Documented By: TD
[2025-01-23] MEDS: DIAZEPAM INJ 5 MG/ML VIAL 2 ML 10 MG IM (15:59)
[2025-01-23 17:25] VITALS: BP 150/73; PULSE 146; RESP 18; TEMP 37.6; O2SAT 96
[2025-01-23] MEDS: MIDAZOLAM INJ 1 MG/ML VIAL 2 ML 5 MG IM (19:17)
[2025-01-23 19:34] VITALS: BP 132/76; PULSE 120; RESP 16; TEMP 36.8; O2SAT 95
== END 2025-01-23 19:37 | disposition home or self-care (01) ==
PROVIDERS: Emergency Provider Family Medicine
DX: R00.0 Tachycardia, unspecified (principal); F19.10 Other psychoactive substance abuse, uncomplicated; F20.9 Schizophrenia, unspecified
CPT/HCPCS: 96372; 99283; J2250; J3360; A9270

== ENCOUNTER 2025-01-28 04:37 | Emergency (ER) | payer MEDICAID, SELFPAY ==
[2025-01-28 04:50] VITALS: BP 153/88; PULSE 153; RESP 19; TEMP 37.9; O2SAT 95
[2025-01-28 04:51] VITALS: BMI 35.9
--- NOTE | 2025-01-28 05:30 | PD.EDMEDCL ---
ED Medical Clearance RME/HPI General Chief complaint: Medical Clearance Stated complaint: MEDICAL CLEARANCE Time Seen by Provider: 01/28/25 05:35 Arrival date/time: 01/28/25 04:37 RME / HPI RME / HPI Narrative: See [facility] for Dr. Yepez's HPI Documentation. Related Information Previous Rx's ?Medication ?Instructions ?Recorded cyclobenzaprine 5 mg tablet 5 mg PO TID PRN muscle spasm #30 11/16/23 tabs naproxen 500 mg tablet 500 mg PO BID PRN pain #30 tabs 11/16/23 bacitracin 500 unit/gram topical 1 applic topical Q8H #14 grams 01/04/25 ointment Allergies Allergy/AdvReac Type Severity Reaction Status Date / Time bee venom protein (honey bee) Allergy Intermediate Swelling Verified 01/28/25 07:49 of the Eye Review of Systems Review of Systems Systems Reviewed: All systems reviewed, normal except as documented Past Medical History Past Medical History PSYCHO/SOCIAL: Positive Recreational Drug Use Social History SUBSTANCE USE: crack/cocaine, opiates and methamphetamine ED Exam Narrative Physical exam: See [facility] for Dr. Yepez's Physical Exam Documentation. Course Quality Measures none Orders Category Date Time Status EKG (ED Only) Stat Exams 01/28/25 05:36 Stop Req Diazepam [Valium] Med 01/28/25 05:36 Discontinued 10 mg PO X1 ONE Metoprolol Succinate Xl [Toprol Xl] Med 01/28/25 05:36 Discontinued 100 mg PO X1 ONE Vital Signs Vital signs: Vital Signs Temperature 100.3 F 01/28/25 04:50 Pulse Rate 153 H 01/28/25 04:50 Respiratory Rate 19 01/28/25 04:50 Blood Pressure 153/88 H 01/28/25 04:50 Pulse Oximetry (%) 95 01/28/25 04:50 Oxygen Delivery Method Room Air 01/28/25 04:50 Medical Clearance [facility] Narrative [facility] Narrative:: This section includes all my notes and documentations, including HPI, PE, and ED course. Lucas Yepez MD HPI: 39 y/o male with BIB [place] [employer] for intermediate medical clearance due to high BP and HR. Reports no headache or dizziness. No CP or SOB. No other complaints. ROS: All negative except as documented in HPI. Physical Exam: General: Alert and oriented. No acute distress. Eyes: Conjunctivae and lids clear. EOMI. PERRL. ENT: No nasal congestion. Pharynx normal. Tympanic membrane normal bilaterally. Neck: Supple. Heart: RRR. Lungs: No respiratory distress. Good air movement. No rhonchi, wheezing, rales. Chest: No tenderness. Abdomen: Soft and nontender. Normal bowel sounds. No distension. No rebound or guarding. Back: No tenderness. Legs: No clubbing, cyanosis, edema. Skin: Warm and dry. Neuro: Alert and oriented X 3. Cranial Nerves II-XII grossly intact. No peripheral motor deficits. Musculoskeletal: All major joints and bones are not tender with no limited ROM. At this point, diagnoses include: Tachycardia Hypertension Treatment here included: Valium 10 mg Toprol X 100 mg Significant improvement noted. Based on my best medical judgment, made decision to medically clear the patient and no further evaluation or treatment indicated at this time. Patient understands and agrees to the discharge instructions customized and printed, see below. Discharge Instructions from Dr. Yepez printed for you: 1. After evaluation, you are medically cleared for intermediate. 2. You were given long-acting medication to slow your heart rate and lower your BP to prevent heart attack. 3. Avoid use of alcohol and drugs to prevent serious injuries and illnesses, some fatal. 4. When you are released from intermediate, see a private doctor for help. 5. Seek immediate medical care with chest pain or with any concerns. You can ask for immediate medical attention anytime. Lucas Yepez MD Patient data External records reviewed:: [facility] previous records (Reviewed prior ED records from 01/23/25. Patient was seen for Substance abuse.) Clinical information provided by:: patient and law enforcement Social determinants that could affect healthcare access:: substance use (Methamphetamine and Crack/Cocaine) Patient has the following chronic illnesses:: Recreational Drug Use How is presenting disease/condition affected by chronic disease/condition?: exacerbated by Evaluation data The following diagnostics were reviewed and interpreted by me:: EKG tracing(s) Lab and/or radiology exams considered but not ordered:: None Interpretation Summary: N/A Medications / Prescriptions Medications or Prescriptions considered but not ordered:: None Medication administrations:: Medication Administration History Discontinued Medications Diazepam (Diazepam 5 Mg Tablet) 10 mg PO X1 ONE Stop: 01/28/25 05:37 Last Admin: 01/28/25 05:45 Dose: 10 mg Documented By: SATINDER Metoprolol Succinate (Metoprolol Succinate Xl 25 Mg Tabcr) 100 mg PO X1 ONE Stop: 01/28/25 05:37 Last Admin: 01/28/25 05:45 Dose: 100 mg Documented By: SATINDER Valium 10 mg Toprol X 100 mg Consultations Consultation(s) initiated? (list below): No Diagnosis Medical Clearance Differential Diagnosis: other (Methamphetamine intoxication, Cocaine Intoxication) Most likely diagnosis given after review of the tests above:: Tachycardia Hypertension Admission Indicated Admission indicated?: not indicated Explain why admission is indicated or not indicated:: With no condition needing emergent intervention, there was no indication for admission. Admission Request Was there a request for admission?: No Disposition Plan Disposition Plan: Discharge Discharge Attestation Discharge Attestation: The patient and all family members were given an opportunity to ask questions and understood the discharge instructions. Discharge instructions specifically effects, indications for sooner follow up or return to the emergency department, and the expected course of current diagnosis. Patient condition: Stable Discharge Plan Plan Patient Disposition: Custodial/Court/Law Prescriptions/Referrals Prescriptions/Med Rec: No Action naproxen 500 mg tablet 500 mg PO BID PRN (Reason: pain) Qty: 30 0RF cyclobenzaprine 5 mg tablet 5 mg PO TID PRN (Reason: muscle spasm) Qty: 30 0RF bacitracin 500 unit/gram ointment 1 applic topical Q8H Qty: 14 0RF Problem List Clinical Impression: Tachycardia, Hypertension Patient/Caregiver Discharge Instructions Discharge Activity: activity as tolerated Education Materials: ED Drug Abuse, ED Hypertension, To Be Confirmed, ED Alcohol Abuse Additional Instructions: Discharge Instructions from Dr. Yepez printed for you: 1. After evaluation, you are medically cleared for intermediate. 2. You were given long-acting medication to slow your heart rate and lower your BP to prevent heart attack. 3. Avoid use of alcohol and drugs to prevent serious injuries and illnesses, some fatal. 4. When you are released from intermediate, see a private doctor for help. 5. Seek immediate medical care with chest pain or with any concerns. You can ask for immediate medical attention anytime. Print Language: Mongolian
[2025-01-28 05:45] VITALS: BP 144/97; PULSE 154
[2025-01-28] MEDS: DIAZEPAM 5 MG TABLET 10 MG PO (05:45)
[2025-01-28] MEDS: METOPROLOL SUCCINATE XL 25 MG TABCR 100 MG PO (05:45)
== END 2025-01-28 05:52 ==
LOC: SERX 05:54
PROVIDERS: Emergency Provider Emergency Medicine
DX: E00.0 Congenital iodine-deficiency syndrome, neurological type (principal); I10 Essential (primary) hypertension
CPT/HCPCS: 99281; A9270

== ENCOUNTER 2025-01-28 06:49 | Emergency (ER) | payer MEDICAID, SELFPAY ==
[2025-01-28 07:38] VITALS: BP 168/98; PULSE 116; RESP 20; TEMP 36.7; O2SAT 98
[2025-01-28 07:45] VITALS: BMI 31.3
--- NOTE | 2025-01-28 07:47 | EDNOTE_ITS ---
ED Medical Clearance RME/HPI General Chief complaint: Medical Clearance Stated complaint: MEDICAL CLEARANCE Time Seen by Provider: 01/28/25 07:45 Arrival date/time: 01/28/25 06:49 RME / HPI RME / HPI Narrative: 39 yo male patient brought in by PD for medical clearance due to tachycardia. Related Information Previous Rx's ?Medication ?Instructions ?Recorded cyclobenzaprine 5 mg tablet 5 mg PO TID PRN muscle spa sm #30 11/16/23 tabs naproxen 500 mg tablet 500 mg PO BID PRN pain #30 t abs 11/16/23 bacitracin 500 unit/gram topical 1 applic topical Q8H #14 grams 01/04/25 ointment Allergies Allergy/AdvReac Type Severity Reaction Status Date / Time bee venom protein (honey bee) Allergy Intermediate Swelling Verified 01/28/25 07:49 of the Eye ED Exam Narrative Physical exam: GENERAL APPEARANCE: alert and oriented x 4, well-developed, well-nourished, no acute distress HEENT: Normocephalic, atraumatic LUNGS: No increased work of breathing, no respiratory distress HEART: Good peripheral perfusion, tachycardia ABDOMEN: non distended EXTREMITIES: atraumatic; no edema NEUROLOGIC: awake; alert and oriented x4; cranial nerves II-XII grossly intact PSYCHIATRIC: appropriate mood and affect SKIN: warm, diaphoretic, normal color; no rashes Course Quality Measures none Vital Signs Vital signs: Vital Signs Temperature 98.0 F 01/28/25 07:38 Pulse Rate 116 H 01/28/25 07:38 Respiratory Rate 20 01/28/25 07:38 Blood Pressure 168/98 H 01/28/25 07:38 Pulse Oximetry (%) 98 01/28/25 07:38 Oxygen Delivery Method Room Air 01/28/25 07:38 Medical Clearance Patient data External records reviewed:: [facility] previous records Clinical information provided by:: law enforcement Social determinants that could affect healthcare access:: substance use Patient has the following chronic illnesses:: None How is presenting disease/condition affected by chronic disease/condition?: no chronic disease Evaluation data The following diagnostics were reviewed and interpreted by me:: other (specify) Lab and/or radiology exams considered but not ordered:: None Interpretation Summary: None Medications / Prescriptions Medications or Prescriptions considered but not ordered:: None Medication administrations:: None Consultations Consultation(s) initiated? (list below): No Diagnosis Medical Clearance Differential Diagnosis: other Most likely diagnosis given after review of the tests above:: Tachycardia Admission Indicated Admission indicated?: not indicated Admission Request Was there a request for admission?: No Disposition Plan Disposition Plan: Discharge Discharge Attestation Discharge Attestation: The patient and all family members were given an opportunity to ask questions and understood the discharge instructions. Discharge instructions specifically effects, indications for sooner follow up or return to the emergency department, and the expected course of current diagnosis. Patient condition: Stable Discharge Plan Plan Patient Disposition: Penitentiary/Court/Law Discharge Disposition comment: Okay to book Prescriptions/Referrals Prescriptions/Med Rec: No Action naproxen 500 mg tablet 500 mg PO BID PRN (Reason: pain) Qty: 30 0RF cyclobenzaprine 5 mg tablet 5 mg PO TID PRN (Reason: muscle spasm) Qty: 30 0RF bacitracin 500 unit/gram ointment 1 applic topical Q8H Qty: 14 0RF Problem List Clinical Impression: Cocaine abuse, Sinus tachycardia, Medical clearance for incarceration Patient/Caregiver Discharge Instructions Education Materials: ED Cocaine And Crack Abuse Print Language: Belarusian
== END 2025-01-28 07:56 ==
LOC: SERX 08:10
PROVIDERS: Emergency Provider Emergency Medicine
DX: T40.5X1A Poisoning by cocaine, accidental (unintentional), initial encounter (principal); R00.0 Tachycardia, unspecified; Z02.89 Encounter for other administrative examinations
CPT/HCPCS: 99283